=== PATIENT | female | born 1965 | race Caucasian/White ===

== ENCOUNTER 2023-12-21 12:16 | Inpatient (IN) | payer OTHER, SELFPAY ==
[2023-12-21] VITALS (24 sets, daily range): BP systolic 20–131; BP diastolic 48–84; BMI 29.0
--- NOTE | 2023-12-21 07:58 | ED.GENMED ---
History of Present Illness
<Ganga Bailey PA-C - Last Filed: 12/21/23 13:33>
General
Chief Complaint: DVT/Possible Blood Clot
Time Seen by Provider: 12/21/23 07:38
Travel History
Have you had any contact with someone who has COVID-19?: No
Do you have any symptoms of coronavirus? Fever > 100 degrees, chills, cough, shortness of breath, sore throat, loss of taste or smell, muscle aches, or headache?: No
History of Present Illness
History of Present Illness:
58-year-old female with history of hypertension and recently diagnosed atrial fibrillation on Eliquis presents to the emergency department for evaluation of swelling and severe pain to the left calf. She notes that pain began mildly 2 weeks ago
after going for a run, pain did not resolve thus yesterday went for massage and shortly after the massage dramatically worsened. She was unable to sleep due to severe pain. She is unable to put any weight on the leg. Did take her Eliquis last
night but not this morning. No fevers or chills. Denies any numbness or discoloration of the left foot
Review of Systems
<Ganga Bailey PA-C - Last Filed: 12/21/23 13:33>
Review of Systems
Allergies reviewed?: Yes
All Other Systems: ROS reviewed and negative except as documented in HPI and ROS
Phy Exam
<Ganga Bailey PA-C - Last Filed: 12/21/23 13:33>
Physical Exam
Physical Exam:
GEN: Well appearing, NAD, WDWN
HEENT: Oral mucosa moist, no scleral icterus
Cardiac: Regular rate
Lung: No respiratory distress, no tachypnea
MSK: Severe swelling of the left calf, primarily to the posterior compartment there is firmness with no overt rigidity. Severe pain with passive dorsiflexion. Left dorsalis pedis pulse is strong, sensation to the L foot intact
Skin: Good color, no pallor or jaundice, no rashes
Neuro: AO x3, moves all extremities freely
Psych: Calm, cooperative
Course
<Ganga Bailey PA-C - Last Filed: 12/21/23 13:33>
Orders/Labs/Results
Orders:
Orders
12/21/23 08:43
Oxycodone/Acetaminophen [Percocet 5/325] 1 tablet PO NOW STA
12/21/23 08:57
CT Lower Ext W/iv Cont Lt Urgent
Comment:
Reason For Exam: calf swell/pain, eval for bleeding
12/21/23 09:08
CPK [Creatine Phosphokinase] Urgent
Complete Blood Count/With Diff Urgent
Comprehensive Metabolic Panel Urgent
12/21/23 10:15
HYDROmorphone [Dilaudid] 0.5 mg IV NOW STA
12/21/23 10:59
Prothrombin Complex(Pcc),Human [Kcentra] 4,200 unit Empty Viaflex Container 100 ml [Viaflex Empty Container] 0 ml IV NOW
Does patient have a dx of serious acute active bleeding?: Yes
Does patient have prior history of HIT?: No
12/21/23 11:11
Type+Screen Urgent
12/21/23 11:26
Prothrombin Complex(Pcc),Human [Kcentra] 4,207 unit Empty Viaflex Container 100 ml [Viaflex Empty Container] 160 ml IV NOW
12/21/23 11:31
Electrocardiogram (*1) Urgent
Reason for Study: QTc Monitoring
EKG- Treatment ONCE
12/21/23 11:45
Admit/Transfer Patient As Directed
Co-Sign Provider:
Level of Care: Inpatient admission
Assign to:: IMU- Intermediate Care
Physician / Group: Charan Gregg
Diagnosis: Left calf compartment syndrome from bleeding
Reason for Hospitalization: Left calf compartment syndrome
Expected length of stay greater than two midnights?: Yes
ELOS- Estimated Length of Stay in days: 3
I certify the patient meets the requirements for IP care: Yes
Code Status As Directed
Resuscitation Status: Full Code
12/21/23 11:52
Dexamethasone Sod Phosphate [Decadron] 20 mg .ROUTE .STK-MED ONE
Fentanyl Citrate/Pf [Sublimaze] 100 mcg .ROUTE .STK-MED ONE
Lidocaine 2% Mpf [Xylocaine Mpf 2%] 100 mg .ROUTE .STK-MED ONE
Midazolam HCl [Versed] 2 mg .ROUTE .STK-MED ONE
Ondansetron Injectable [Zofran] 4 mg .ROUTE .STK-MED ONE
Propofol [Diprivan] 20 ml .ROUTE .STK-MED
Rocuronium [place] [Rocuronium] 50 mg .ROUTE .STK-MED ONE
12/21/23 12:10
Heparin 5,000 units .ROUTE .STK-MED ONE
Abnormal Lab Results
12/21/23
09:08
MCH 32.1 H pg
(27.0-31.0)
MPV 10.9 H fL
(7.4-10.4)
Chloride 108 H mmol/L
(98-107)
Glucose 103 H mg/dl
(70-99)
12/21/23 09:08
12/21/23 09:08
Vital Signs
Initial and Last Documented VS:
Initial Vital Signs
Temp Pulse Resp BP Pulse Ox
97.9 F 67 16 122/77 98
12/21/23 06:50 12/21/23 06:50 12/21/23 06:50 12/21/23 06:50 12/21/23 06:50
Last Documented Vital Signs
Temp Pulse Resp BP Pulse Ox
97.9 F 67 16 131/77 95
12/21/23 06:50 12/21/23 06:50 12/21/23 06:50 12/21/23 11:13 12/21/23 11:45
Heatherlt;Gabe ThuanKarlee Palmer DO - Last Filed: 12/21/23 10:46>
Orders/Labs/Results
Orders:
Orders
12/21/23 08:43
Oxycodone/Acetaminophen [Percocet 5/325] 1 tablet PO NOW STA
12/21/23 08:57
CT Lower Ext W/iv Cont Lt Urgent
Comment:
Reason For Exam: calf swell/pain, eval for bleeding
12/21/23 09:08
CPK [Creatine Phosphokinase] Urgent
Complete Blood Count/With Diff Urgent
Comprehensive Metabolic Panel Urgent
12/21/23 10:15
HYDROmorphone [Dilaudid] 0.5 mg IV NOW STA
12/21/23 10:59
Prothrombin Complex(Pcc),Human [Kcentra] 4,200 unit Empty Viaflex Container 100 ml [Viaflex Empty Container] 0 ml IV NOW
Does patient have a dx of serious acute active bleeding?: Yes
Does patient have prior history of HIT?: No
12/21/23 11:11
Type+Screen Urgent
12/21/23 11:26
Prothrombin Complex(Pcc),Human [Kcentra] 4,207 unit Empty Viaflex Container 100 ml [Viaflex Empty Container] 160 ml IV NOW
12/21/23 11:31
Electrocardiogram (*1) Urgent
Reason for Study: QTc Monitoring
EKG- Treatment ONCE
12/21/23 11:45
Admit/Transfer Patient As Directed
Co-Sign Provider:
Level of Care: Inpatient admission
Assign to:: IMU- Intermediate Care
Physician / Group: Charan Gregg
Diagnosis: Left calf compartment syndrome from bleeding
Reason for Hospitalization: Left calf compartment syndrome
Expected length of stay greater than two midnights?: Yes
ELOS- Estimated Length of Stay in days: 3
I certify the patient meets the requirements for IP care: Yes
Code Status As Directed
Resuscitation Status: Full Code
12/21/23 11:52
Dexamethasone Sod Phosphate [Decadron] 20 mg .ROUTE .STK-MED ONE
Fentanyl Citrate/Pf [Sublimaze] 100 mcg .ROUTE .STK-MED ONE
Lidocaine 2% Mpf [Xylocaine Mpf 2%] 100 mg .ROUTE .STK-MED ONE
Midazolam HCl [Versed] 2 mg .ROUTE .STK-MED ONE
Ondansetron Injectable [Zofran] 4 mg .ROUTE .STK-MED ONE
Propofol [Diprivan] 20 ml .ROUTE .STK-MED
Rocuronium [place] [Rocuronium] 50 mg .ROUTE .STK-MED ONE
12/21/23 12:10
Heparin 5,000 units .ROUTE .STK-MED ONE
Abnormal Lab Results
12/21/23
09:08
MCH 32.1 H pg
(27.0-31.0)
MPV 10.9 H fL
(7.4-10.4)
Chloride 108 H mmol/L
(98-107)
Glucose 103 H mg/dl
(70-99)
12/21/23 09:08
12/21/23 09:08
Vital Signs
Initial and Last Documented VS:
Initial Vital Signs
Temp Pulse Resp BP Pulse Ox
97.9 F 67 16 122/77 98
12/21/23 06:50 12/21/23 06:50 12/21/23 06:50 12/21/23 06:50 12/21/23 06:50
Last Documented Vital Signs
Temp Pulse Resp BP Pulse Ox
97.9 F 67 16 131/77 95
12/21/23 06:50 12/21/23 06:50 12/21/23 06:50 12/21/23 11:13 12/21/23 11:45
<Ganga Bailey PA-C - Last Filed: 12/21/23 13:33>
MDM/Problems Addressed
MDM/Problems Addressed:
58-year-old female presenting with left calf swelling and severe pain, initial clinical concern for musculoskeletal etiology such as calf strain/tear versus acute compartment syndrome. The patient's calf is quite tense but not excessively firm.
Initial labs were obtained showing a negative CPK and CT with IV contrast shows intramuscular hematoma with no active extravasation. The decision was then made to obtain intracompartmental pressure measurements using the [place] device, given that
the symptoms are isolated to the posterior compartment the superficial posterior compartment was assessed showing a compartment pressure of 46 mmHg. Case was then discussed with vascular surgery who reviewed the clinical data and images and will
take the patient urgently to the operating room for hematoma decompression and potential fasciotomy. Due to the patient's recent use of Eliquis her anticoagulant was reversed with 4 factor PCC. She remained clinically stable with no signs of lower
extremity ischemia in the emergency department
<Ganga Bailey PA-C - Last Filed: 12/21/23 13:33>
*Critical Care Note
Total Time (30-74mins, 75-104mins- exclusive of procedures): 50 minutes
comment:
Critical care time: 50 minutes
Critical care time was exclusive of: Separately billable procedures, treating other patients, and teaching time
Critical care was necessary to treat or prevent imminent or life-threatening deterioration of the following conditions: Acute compartment syndrome
Critical care time spent personally by me on the following activities:
[x] Review of old charts
[x] Obtaining history from patient or surrogate
[x] Ordering and review of the laboratory studies
[x] Ordering and review of radiographic studies
[x] Ordering and performing treatments and interventions
[x] Patient patient's response to treatment
[x] Development of treatment plan with patient or surrogate
<Ganga Bailey PA-C - Last Filed: 12/21/23 13:33>
Update Note
Update Note:
1037: superficial posterior compartment pressure 46mmHg measured by Dr Palmer. [facility] message sent to Orthopedics for evaluation
1050: Received call from Dr Lane, [employer] salesperson. As there is no fracture, this is a vascular surgery case.
1058: D/W Dr Rizvi with vascular surgery, will come to evaluate pt, plan for OR. Will send type and screen, order Kcentra for eliquis reversal as pt's last dose was last night
ED Attending Note
<Ganga Bailey PA-C - Last Filed: 12/21/23 13:33>
-
Portions of this chart may have been created with voice recognition software.� Occasional wrong word or��sound alike� substitutions may have occurred due to the inherent limitations of voice recognition software.
<Gabe Palmer, - Last Filed: 12/21/23 10:46>
ED Attending Note
Patient seen and examined by attending physician: Yes
I performed the substantive portion of visit, reviewed & personally made and approve the management plan that is documented in note by myself or HARRY.: Yes
ED Attending Note:
Agree with Lucas's note.
Pt with left calf pain. Had been present for a couple weeks but much worse over the past 24 hours since a message.
VSS
Cap refill brisk
strong DP/PT pulse
Will obtain CT to eval for hematoma, active extrav, or other cause for pain.
CT reviewed by myself----appears to show hematoma in calf.
Superficial posterior compartment pressure measured (copartment with hematoma).
Skin prepped w chlorhexidine and allowed to dry.
Device zeroed as recommended by tomography technologist.
0.2ml of sterile saline injected after advancing needle about 3cm into compartment. Pressure measured at 43.
Lucas will communicate with ortho on-call
Discharge Plan
Departure
Patient Disposition: Admit
Date of Disposition: 12/21/23
Time of Disposition: 11:09
Presentation/result/management discussed w/ accepting MD/DO: Hospitalist
Discharge Problem:
Compartment syndrome of left lower extremity
Interventions
Interventions:
*Risk Screen - Suicide Last Done: 12/21/23 06:50
*General Assessment Last Done: 12/21/23 06:50
*Neglect/Abuse Screening Last Done: 12/21/23 06:50
*ED COVID-19 Vaccine History Last Done: 12/21/23 09:14
*Nursing Disposition Last Done: 12/21/23 13:03
ED- Cardiac Assessment Last Done: 12/21/23 11:21
ED- Pulmonary Assessment Last Done: 12/21/23 09:34
ED-Peripheral Vascular Assessment Last Done: 12/21/23 09:34
ED-Skin Assessment Last Done: 12/21/23 09:18
Discharge Date and Time
Discharge Date/Time: 12/21/23 13:05
[2023-12-21] MEDS: PERCOCET 5/325 1 TABLET PO (09:01)
[2023-12-21 09:19] LABS: % Basophils 0.7 % (0-2); % Eosinophils 2.9 % (0-6); % Immature Granulocytes 0.3 % (0-0.5); % Monocytes 5.6 % (1.7-9.3); % Neutrophils 67.5 % (42.2-75.2); Absolute Basophils 0.1 10^3/uL (0-0.2); Absolute Eosinophils 0.3 10^3/uL (0-0.7); Absolute Lymphocytes 2.2 10^3/uL (1.2-3.4); Absolute Monocytes 0.5 10^3/uL (0.1-0.6); Absolute Neutrophils 6.3 10^3/uL (1.4-6.5); Hematocrit 40.5 % (37.0-47.0); Hemoglobin 13.5 g/dL (12.0-16.0); Mean Corp Hgb Conc. 33.3 g/dL (33.0-37.0); Mean Corpuscular Hgb 32.1 pg (27.0-31.0); Mean Corpuscular Volume 96.4 fL (81.0-99.0); Mean Platelet Volume 10.9 fL (7.4-10.4); Nucleated Red Blood Cells % 0 %; Platelet Count 211 10^3/uL (130-400); Red Cell Dist. Width 13.3 % (11.5-14.5); White Blood Cell Count 9.4 10^3/uL (4.8-10.8)
[2023-12-21 09:34] LABS: ALT (SGPT) 20 U/L (0-35); AST (SGOT) 23 U/L (14-36); Albumin 4.4 g/dl (3.5-5.0); Alkaline Phosphatase 58 U/L (38-126); Blood Urea Nitrogen 16 mg/dl (7-17); Calcium 9.1 mg/dl (8.4-10.2); Carbon Dioxide 24 mmol/L (22-30); Chloride 108 mmol/L (98-107); Creatine Phosphokinase 47 U/L (30-135); Estimated Creatinine Clearance 117 ml/min; Glucose 103 mg/dl (70-99); Potassium 4.6 mmol/L (3.5-5.1); Sodium 138 mmol/L (135-145); Total Bilirubin 0.5 mg/dl (0.2-1.3); Total Protein 6.5 g/dl (6.3-8.2); eGFR > 60.00
[2023-12-21] MEDS: DILAUDID 0.5 MG IV ×2 (10:23→14:04)
[2023-12-21] MEDS: KCENTRA 160 UNIT IV (11:41)
--- NOTE | 2023-12-21 11:48 | HPS.HSE ---
Family Physician
-
Family Physician: Mars Parks PA-C
Chief Complaint
-
Left calf swelling and pain
History of Present Illness
Patient is a 58-year-old female with past medical history of paroxysmal A-fib on Eliquis, essential hypertension, obesity, hyperlipidemia, impaired fasting glucose, medical marijuana user came to ER with new onset of left calf pain and swelling.
For last 2 weeks patient have vigorous exercise/activity with running and jogging. Patient started noticing some left calf pain. Patient went for massage yesterday and after return noticed new onset swelling in left calf. This rapidly progressed
through night with significant swelling and tension in left leg causing patient to present to ER. In ER patient had a CT of left leg showing a large hematoma. Intra compartment pressure was measured at bedside by ER physician and was found to be
43 mmHg. Patient with good palpable pulse and dorsalis pedis and posterior tibialis. Vascular surgery was consulted and patient is planned to go to the OR for emergent surgery.
During my visit in ER patient denies of any other ongoing issues of dizziness/headache/chest pain/palpitation/shortness of breath/cough/abdominal pain/nausea/vomiting/diarrhea/dysuria/fever.
Medical History
Past Medical History
Past Medical History: Reports Other
Additional Past Medical History:
paroxysmal A-fib on Eliquis, essential hypertension, obesity, hyperlipidemia, impaired fasting glucose, medical marijuana user
Past Surgical History: Reports Other
Social History
Tobacco: Other (Smokes marijuana)
Alcohol: Occasional
Drug: Marijuana
Living: With Family
Family History
Family History: Not pertinent
Allergies / Home Medications
Allergies reflects when Allergies were last updated in [facility].
Home Medications with original date entered in [facility]
Allergy/Medication List:
Allergies
Allergy/AdvReac Type Severity Reaction Status Date / Time
No Known Allergies Allergy Verified 12/21/23 06:49
Med rec pending:
Losartan
Eliquis
Review of Systems
-
A 12 point ROS was completed and negative except as noted: Yes
Physical Exam
Vital Signs
Vital Signs
Temp Pulse Resp BP Pulse Ox
97.9 F 67 16 131/77 97
12/21/23 06:50 12/21/23 06:50 12/21/23 06:50 12/21/23 11:13 12/21/23 11:14
Physical Exam
General: No Apparent Distress and Obese
HEENT: No Oxygen
Respiratory: Clear
Cardiac: S1/S2 and Regular Rhythm; No Murmur or Rub
GI: Soft, Non Tender, Non Distended and Normal Bowel Sounds; No Organomegaly
Musculoskeletal: No Clubbing, No Cyanosis and Edema, Left Lower Extremity (tenderness on exam. good DP/PT pulse)
Skin: No Rash
Neuro: Awake, Alert, Oriented and Nonfocal/grossly intact
Laboratory Results
-
12/21/23 09:08
12/21/23 09:08
Laboratory Results
Total Bilirubin 0.5 mg/dl (0.2-1.3) 12/21/23 09:08
AST 23 U/L (14-36) 12/21/23 09:08
ALT 20 U/L (0-35) 12/21/23 09:08
Alkaline Phosphatase 58 U/L (38-126) 12/21/23 09:08
Data Reviewed
-
Lab Data: Labs Reviewed by me, Discussed with Patient and Discussed with Family
Impression/Plan
-
1. Left calf hematoma associated with eliquis use
Left leg compartment syndrome
-Spontaneous hematoma after left calf massage therapy
-CT left lower extremity official read pending, posterior compartment hematoma
-Bedside intra compartment pressure measurement of 43 mmHg
-Patient on Eliquis for diagnosis of paroxysmal A-fib in October, patient getting dose of Kcentra in ER
-Vascular surgery consulted and patient to going to the OR
-NPO/IVF and pain medication ordered
-Monitor hemoglobin trend, vascular checks ordered
-Admit to IMU
2. Paroxysmal atrial fibrillation
-Family concerned about stroke risk, discussed at length with acute bleed patient needs to be off of blood thinners and will be resumed back on anticoagulation once cleared postoperatively
-EKG showing NSR
-Follows up with Dr. Martinez
3. Essential HTN
-Med rec calcium pending, patient on ANIKA/ARB at home
-Will resume back once dose confirmed
4. Marijuana use
-Patient use medical marijuana for anxiety/stress
DVT PPX - none - SCD contraindicated with calf hematoma
Full code
Total time spent : 76 mins
I personally saw and examined the patient.
I have reviewed all diagnostic interpretations and treatment plans as written.
Time includes patient management by me, time spent at the patients bedside, time to review lab and imaging results, discussing patient care, documentation in the medical record, and time spent with the family or caregiver and discussing care plan
with RN/Consultants.
--- NOTE | 2023-12-21 12:16 | W.SUR.PREOP ---
Pre-Operative Surgical Note
-
I have examined this patient prior to the performance of the scheduled procedure.
The patient's condition is unchanged from the time of the current History and
Physical and the patient is able to undergo the scheduled procedure.
--- NOTE | 2023-12-21 12:19 | CON.VAS ---
Consultation
Consultation Request
Date/Time Consultation Requested: 12/21/2023
Date/Time Consultation Performed: 12/21/2023
Performing Provider: Yelena Rizvi MD
Reason for Consultation: LLE compartment syndrome
Medical History
-
Chief Complaint: L calf pain
History of Present Illness:
Has had sore left calf for the past couple of weeks thought to be secondary to increased working out/activity
Yesterday went for massage, which was very painful
Since then has had progressively enlarging left calf with progressively worsening pain
On AC for a fib
Denies motor/sensory loss
compartment pressure by ED measured at [address] reviewed and interpreted by me with intramuscular hematoma L gastroc, no obvious active extrav
Past Medical History
Past Medical History: Arrhythmias, HTN, Hypercholesterolemia and Other (impaired fasting glucose)
Social History
Tobacco: Smoker (Marijuana only)
Alcohol: Occasional
Family History
Family History: Reviewed & Not Pertinent
Allergies / Home Medications
Allergy/AdvReac Type Severity Reaction Status Date / Time
No Known Allergies Allergy Verified 12/21/23 06:49
Medication Instructions Recorded Confirmed Type
allopurinol 100 mg tablet 100 mg PO DAILY 12/21/23 12/21/23 History
apixaban 5 mg tablet (Eliquis) 5 mg PO BID 12/21/23 12/21/23 History
berberine-herbal comb no.18 capsule 1 cap PO DAILY 12/21/23 12/21/23 History
diltiazem HCl 120 mg capsule,24 120 mg PO DAILY 12/21/23 12/21/23 History
hr,extended release
fluoxetine 20 mg capsule (Prozac) 20 mg PO DAILY 12/21/23 12/21/23 History
losartan 100 mg tablet 100 mg PO DAILY 12/21/23 12/21/23 History
therapeutic multivitamin 1 tab PO DAILY 12/21/23 12/21/23 History
Review of Systems
-
History Source: Patient
All other systems: Negative unless noted
Physical Exam
Vital Signs
Temp Pulse Resp BP Pulse Ox
97.9 F 67 16 131/77 95
12/21/23 06:50 12/21/23 06:50 12/21/23 06:50 12/21/23 11:13 12/21/23 11:45
Lab Results
12/21/23 09:08
12/21/23 09:08
Physical Exam
General: Well Developed and Well Nourished
HEENT: Normocephalic and Anicteric
Respiratory: Clear
Cardiac: S1/S2
GI: Soft and Non Tender
Musculoskeletal: Other (Left posterior compartment tight with severe tenderness to palpation)
Skin: Warm and Dry
Neuro: AO x 3
Pulses: Left Dorsalis Pedis: +2 (Left foot motor/sensory intact and warm)
Assessment / Plan
-
58F with intramuscular hematoma causing tense compartment and severe pain concerning for compartment syndrome.
Will proceed emergently to the operating room for decompression of the compartment via fasciotomy and attempted evacuation of hematoma.
Hold AC
Stat type and screen
serial neurovasc checks LLE
Data Reviewed
-
CT Scan: Image Personally Visualized and interpreted
Labs: Labs Reviewed by me
--- NOTE | 2023-12-21 13:54 | W.IMMPOSTOP ---
Surgical Immed Post Op Note
-
Primary Surgeon: Belkys
Pre-op Diagnosis:LLE posterior compartment hematoma, L posterior compartment syndrome
Post-op Diagnosis: Same
Procedure Performed: 1. Superficial posterior compartment fasciotomy 2. Evacuation hematoma 3. Control of hemorrhage
Anesthesia Type: General
Estimated Blood Loss: 20cc
Complications: None
Operative Findings: Hematoma evacuated. Skin closed primarily over a 19F britton drain.
[2023-12-21] MEDS: NSS 1000 IV (17:55)
[2023-12-21 18:25] LABS: Hematocrit 35.8 % (37.0-47.0); Hemoglobin 12.6 g/dL (12.0-16.0); Mean Corp Hgb Conc. 35.2 g/dL (33.0-37.0); Mean Corpuscular Hgb 32.4 pg (27.0-31.0); Mean Platelet Volume 10.7 fL (7.4-10.4); Platelet Count 195 10^3/uL (130-400); Red Blood Cell Count 3.89 10^6/uL (4.20-5.40); Red Cell Dist. Width 13.3 % (11.5-14.5); White Blood Cell Count 11.6 10^3/uL (4.8-10.8)
[2023-12-21] MEDS: COLACE PO (19:40)
[2023-12-21] MEDS: ROXICODONE 5 MG PO (19:54)
--- NOTE | 2023-12-21 20:30 | PTCARENOTE ---
Assume care from AM RN. AAOx3 at times anxious. C/o lt leg pain. See MAR. Daughter at bedside and is anxious. Gen weakness Lt leg. NSR in the monitor. +1 Lt leg edema. Pt has weak pulse. Vascular assessment Q2. Lung sounds are diminished at the
bases, shallow breathing. SaO2 92-94% 2L NC. Occasional dry nonproductive cough. Abd round +BS. Pt appears comfortable in bed and call astorga within reach.
[2023-12-21] MEDS: MELATONIN 3 MG PO (22:49)
[2023-12-22] VITALS (18 sets, daily range): BP systolic 92–141; BP diastolic 54–87; BMI 28.3
[2023-12-22] MEDS: ROXICODONE 5 MG PO ×4 (02:21→17:38)
[2023-12-22] MEDS: NSS 1000 IV ×2 (04:56→14:19)
[2023-12-22 05:33] LABS: Hematocrit 32.5 % (37.0-47.0); Hemoglobin 11.3 g/dL (12.0-16.0); Mean Corp Hgb Conc. 34.8 g/dL (33.0-37.0); Mean Corpuscular Hgb 32.4 pg (27.0-31.0); Mean Corpuscular Volume 93.1 fL (81.0-99.0); Mean Platelet Volume 11.3 fL (7.4-10.4); Platelet Count 193 10^3/uL (130-400); Red Blood Cell Count 3.49 10^6/uL (4.20-5.40); Red Cell Dist. Width 13.1 % (11.5-14.5); White Blood Cell Count 10.9 10^3/uL (4.8-10.8)
[2023-12-22 05:38] LABS: Blood Urea Nitrogen 7 mg/dl (7-17); Calcium 8.9 mg/dl (8.4-10.2); Carbon Dioxide 24 mmol/L (22-30); Chloride 105 mmol/L (98-107); Estimated Creatinine Clearance 115 ml/min; Glucose 128 mg/dl (70-99); Potassium 4.2 mmol/L (3.5-5.1); Sodium 137 mmol/L (135-145); eGFR > 60.00
[2023-12-22] MEDS: PROZAC 20 MG PO (07:37)
[2023-12-22] MEDS: ZYLOPRIM 100 MG PO (07:38)
[2023-12-22] MEDS: COZAAR 100 MG PO (07:39)
--- NOTE | 2023-12-22 08:38 | W.PN.VS ---
Today's Communication / Plan
-
POD 1 L posterior compartment fasciotomy, evacuation hematoma
- restart home anticoagulation
- monitor drain output
- mobilize/PT
- dressing down tomorrow
- hopefully drain out and home tomorrow if tolerates anticoagulation restart with no increase in bleeding
Assessment/Plan
-
POD 1 L posterior compartment fasciotomy, evacuation hematoma
- restart home anticoagulation
- monitor drain output
- mobilize/PT
- dressing down tomorrow
- hopefully drain out and home tomorrow if tolerates anticoagulation restart with no increase in bleeding.
Subjective Data
-
Date of Service: December 22, 2023
POD 1 L posterior compartment fasciotomy, evacuation of hematoma
Shawn drain - 30cc post op
Pain significantly improved
no motor/sensory deficits in lower leg or foot
hgb drifted, now 11
Objective Data
-
Vital Signs
Temp Pulse Resp BP Pulse Ox
98.1 F 70 18 117/69 93
12/22/23 07:35 12/22/23 07:39 12/22/23 05:03 12/22/23 07:39 12/22/23 05:03
Intake and Output
12/21/23 12/22/23 12/23/23
06:59 06:59 06:59
Intake Total 1590 / 1590
Output Total 30 / 30
Balance 1560 / 1560
Intake:
Oral fluids 1240 / 1240
IV fluids (Total) 350 / 350
normosol 200 / 200
Output:
Drain Output (Total) 30 / 30
Left Lower Leg Ilya-Med[place] 30 / 30
Other:
Number of approximated MODERATE 2
amounts of urine
Number of approximated LARGE 1
amounts of urine
Lab Results
12/22/23 04:55
12/22/23 04:55
Calcium 8.9 mg/dl (8.4-10.2) 12/22/23 04:55
Total Bilirubin 0.5 mg/dl (0.2-1.3) 12/21/23 09:08
AST 23 U/L (14-36) 12/21/23 09:08
ALT 20 U/L (0-35) 12/21/23 09:08
Alkaline Phosphatase 58 U/L (38-126) 12/21/23 09:08
Total Protein 6.5 g/dl (6.3-8.2) 12/21/23 09:08
Albumin 4.4 g/dl (3.5-5.0) 12/21/23 09:08
Physical Exam
-
2+ DP, PT
foot warm
foot motor/sensory intact
dressing dry
--- NOTE | 2023-12-22 08:56 | W.PN.HOSP.TC ---
Today's Communication/Plan
-
Start Eliquis
PT OT evaluation
Transfer to [facility]
Assessment / Plan
Assessment / Plan
1. Left calf hematoma associated with Eliquis use
� � Left leg compartment syndrome
Acute blood loss anemia
-Spontaneous hematoma after left calf massage therapy
-CT left lower extremity official read pending,� posterior compartment hematoma
-Bedside intra compartment pressure measurement of 43 mmHg
-Patient on Eliquis for diagnosis of paroxysmal A-fib in October, patient getting dose of Kcentra in ER
-Patient was taken emergently to the OR with s/p left calf fasciotomy and hematoma evacuation done on 12/20
-Vascular surgery evaluated today and cleared to be resumed back on Eliquis.
-Minimal hemoglobin drop from blood loss/hematoma. Continue monitoring
2.� Paroxysmal atrial fibrillation
-Patient to be resumed back on Eliquis home dose from today morning
-EKG showing NSR
-Follows up with Dr. Martinez
3. Essential HTN
-Resume home medication of diltiazem/losartan
4. Marijuana use
-Patient use medical marijuana for anxiety/stress
5. Depression/anxiety
-Resume back fluoxetine
DVT PPX - none -Eliquis
Full code
Anticipated Discharge: 24 - 48 hours
Subjective/Interval History
-
Date of Service: December 22, 2023
Complaints overnight
Some pain in left lower extremity
Objective Data
-
Labs:
Laboratory Results
12/22/23 12/22/23
00:00 04:55
WBC Cancelled 10.9 H
Hgb Cancelled 11.3 L
Hct Cancelled 32.5 L
Plt Count Cancelled 193
Sodium 137
Potassium 4.2
Chloride 105
Carbon Dioxide 24
BUN 7
Creatinine 0.4 L
Glucose 128 H
Calcium 8.9
Vital Signs:
Vital Signs
Temp Pulse Resp BP Pulse Ox
98.1 F 70 18 117/69 93
12/22/23 07:35 12/22/23 07:39 12/22/23 05:03 12/22/23 07:39 12/22/23 05:03
I&O
12/21/23 12/22/23 12/23/23
06:59 06:59 06:59
Intake Total 1590 / 1590
Output Total
Balance 1560 / 1560
Review of Systems
-
Respiratory: Reports No Symptoms
Cardiac: Reports No Symptoms
Abdomen/GI: Reports No Symptoms
Physical Exam
-
General: No Apparent Distress and Comfortable
HEENT: Negative Oxygen
Respiratory: Clear to Auscultation
Cardiac: Regular Rhythm and S1/S2; Negative Murmur or Rub
GI: Soft, Nontender and Nondistended
Musculoskeletal: Edema, Left Lower Extrem (QUINN drain in place)
Neuro: Awake, Alert, Oriented, No Motor Deficits and Nonfocal/Grossly Intact
Psych: Calm
[2023-12-22] MEDS: ELIQUIS 5 MG PO ×2 (10:17→20:58)
[2023-12-22] MEDS: COLACE 100 MG PO ×2 (10:17→20:58)
--- NOTE | 2023-12-22 13:35 | CM ---
CM reviewed medical records. CM met with patient in room. Patient confirmed demographics. Patient lives independently with spouse. No history of VN, SNF. Patient has a walker and a cane. Patient is active with her PCP. Patient uses [facility] in
[facility].
Patient is agreeable to VN. Referral sent via Care port to [facility].
--- NOTE | 2023-12-22 14:33 | PTCARENOTE ---
Pt. arrived via wheelchair from [facility] to [facility]. Pt. received pain medication prior to transfer, pt. states her pain level has improved. Pt. VSS, family at bedside. Pt. resting in bed at this time, call astorga within reach.
[2023-12-22] MEDS: MELATONIN 3 MG PO (20:58)
[2023-12-23 01:22] LABS: Hematocrit 29.6 % (37.0-47.0); Hemoglobin 10.2 g/dL (12.0-16.0); Mean Corp Hgb Conc. 34.5 g/dL (33.0-37.0); Mean Corpuscular Hgb 32.5 pg (27.0-31.0); Mean Corpuscular Volume 94.3 fL (81.0-99.0); Mean Platelet Volume 10.7 fL (7.4-10.4); Platelet Count 141 10^3/uL (130-400); Red Blood Cell Count 3.14 10^6/uL (4.20-5.40); Red Cell Dist. Width 13.3 % (11.5-14.5); White Blood Cell Count 7.9 10^3/uL (4.8-10.8)
[2023-12-23 01:40] LABS: Blood Urea Nitrogen 10 mg/dl (7-17); Calcium 8.7 mg/dl (8.4-10.2); Carbon Dioxide 25 mmol/L (22-30); Chloride 110 mmol/L (98-107); Estimated Creatinine Clearance 115 ml/min; Glucose 104 mg/dl (70-99); Potassium 3.9 mmol/L (3.5-5.1); Sodium 137 mmol/L (135-145); eGFR > 60.00
[2023-12-23] MEDS: ROXICODONE 5 MG PO ×2 (04:34→13:03)
[2023-12-23 07:00] VITALS: BP 151/82
[2023-12-23] MEDS: ELIQUIS 5 MG PO (08:23)
[2023-12-23] MEDS: PROZAC 20 MG PO (08:23)
[2023-12-23] MEDS: COLACE 100 MG PO (08:23)
[2023-12-23] MEDS: COZAAR 100 MG PO (08:23)
[2023-12-23] MEDS: ZYLOPRIM 100 MG PO (08:23)
[2023-12-23 09:13] VITALS: BP 143/81; PULSE 63; O2SAT 99
[2023-12-23 12:27] LABS: Hepatitis B Surface Antigen Negative (Negative)
--- NOTE | 2023-12-23 12:36 | W.PN.VS ---
Today's Communication / Plan
-
Seen and assessed with Dr. Bradshaw
Assessment/Plan
-
POD 2 L posterior compartment fasciotomy, evacuation hematoma
-QUINN drain removed
-Continue Eliquis
-mobilize/PT
-Okay for discharge
Subjective Data
-
Date of Service: December 23, 2023
Patient seen at bedside this a.m. with Dr. Bradshaw. No events overnight. Dressing dry. Pulse checks remain unchanged
Objective Data
-
Vital Signs
Temp Pulse Resp BP Pulse Ox
98.8 F 57 18 151/82 98
12/23/23 07:00 12/23/23 07:00 12/23/23 07:00 12/23/23 07:00 12/23/23 08:00
Intake and Output
12/22/23 12/23/23 12/24/23
06:59 06:59 06:59
Intake Total 1590 / 1590 1020 / 1020
Output Total /
Balance 1560 / 1560 975 / 975
Intake:
Oral fluids 1240 / 1240 720 / 720
IV fluids (Total) 350 / 350 300 / 300
normosol 200 / 200
Output:
Drain Output (Total) 45 / 45
Left Lower Leg Ilya-Medina 45 / 45
Other:
Number of approximated MODERATE 2 4
amounts of urine
Number of approximated LARGE 1
amounts of urine
Lab Results
12/23/23 01:17
12/23/23 01:17
Calcium 8.7 mg/dl (8.4-10.2) 12/23/23 01:17
Total Bilirubin 0.5 mg/dl (0.2-1.3) 12/21/23 09:08
AST 23 U/L (14-36) 12/21/23 09:08
ALT 20 U/L (0-35) 12/21/23 09:08
Alkaline Phosphatase 58 U/L (38-126) 12/21/23 09:08
Total Protein 6.5 g/dl (6.3-8.2) 12/21/23 09:08
Albumin 4.4 g/dl (3.5-5.0) 12/21/23 09:08
Physical Exam
-
2+ DP, PT
foot warm
foot motor/sensory intact
dressing removed, matt/suture site well-approximated, clean dry and intact
QUINN removed
Geovanni wrapped
[2023-12-23 12:38] LABS: HIV Combo Negative (Negative)
[2023-12-23 12:45] LABS: Hepatitis C Antibody Negative (Negative)
--- NOTE | 2023-12-23 15:22 | W.PN.HOSP.TC ---
Today's Communication/Plan
-
ok for d/c
Assessment / Plan
Assessment / Plan
pt is a 58 year old female
Left calf hematoma associated with Eliquis use with Left leg compartment syndrome and Acute blood loss anemia--Spontaneous hematoma after left calf massage therapy--s/p OR with vascular--eliquis restarted--OK for d/c
Paroxysmal atrial fibrillation--Patient to be resumed back on Eliquis home dose from today morning--EKG showing NSR--Follows up with Dr. Martinez
Essential HTN--Resume home medication of diltiazem/losartan
Marijuana use--Patient use medical marijuana for anxiety/stress
Depression/anxiety--Resume back fluoxetine
DVT PPX - none -Eliquis
Full code
Anticipated Discharge: Today
Subjective/Interval History
-
Date of Service: December 23, 2023
pt anxious to go home
Objective Data
-
Vital Signs:
max temp for 24 hours
12/23/23
07:00
Temp 98.8 F
Vital Signs
Temp Pulse Resp BP Pulse Ox
98.8 F 57 18 151/82 98
12/23/23 07:00 12/23/23 07:00 12/23/23 07:00 12/23/23 07:00 12/23/23 08:00
I&O
12/22/23 12/23/23 12/24/23
06:59 06:59 06:59
Intake Total 1590 / 1590 1020 / 1020
Output Total 30 30 45 / 45
Balance 1560 / 1560 975 / 975
Review of Systems
-
All other systems: Reviewed and negative
Physical Exam
-
General: Well Developed, Well Nourished and No Apparent Distress
HEENT: Normocephalic and Atraumatic
Respiratory: Clear to Auscultation; Negative Wheezes or Rhonchi
Cardiac: Regular Rhythm and S1/S2; Negative Murmur
GI: Soft, Nontender, Nondistended and Normal Bowel Sounds
Musculoskeletal: No Clubbing, No Cyanosis, No Edema and Other (left leg wrapped)
Neuro: Awake and Alert
--- NOTE | 2023-12-23 15:38 | CM ---
Patient seen at bedside, with and physician. Patient was referred to [facility], no answer at this time. Patient indicated that patient daughter is a nurse and would be assisting them with the wound care. Patient was
given isa phone number to call with questions. Patient for discharge home today with family supports. CM will continue to follow for discharge planning needs.
Plan;home with isa vs daughter supports.
--- NOTE | 2023-12-24 08:04 | W.DCSUMMARY ---
Discharge Summary
Discharge Data
Date of Admission: 12/21/23
Date of Discharge: 12/23/23
-
Pending Results: No
Hospital Course
Primary care physician : Mars Parks
Principal Discharge diagnosis : Left calf hematoma associated with Eliquis and left leg compartment syndrome with acute blood loss anemia
Chronic Discharge diagnosis : Paroxysmal atrial fibrillation, essential hypertension, marijuana use, depression/anxiety
Hospital Course : Patient was a 58-year-old female with paroxysmal atrial fibrillation on Eliquis who came in complaining of left calf pain and swelling. For the last 2 weeks prior to admission, she had vigorous exercise and activity with running
and jogging. She then noticed some left calf pain. Patient did go for massage on the day prior to admission and afterwards noticed swelling in the left calf. She stated this rapidly progressed through the night and had tension in the left leg
which caused her to come to the emergency department. CAT scan showed large left leg hematoma. Intra compartment pressures were measured and found to be 43 mmHg. Vascular surgery was consulted and the patient did go to the operating room for
emergent surgery. Patient was admitted.
Problem #1: Left leg hematoma associated with Eliquis resulting in left leg compartment syndrome with acute blood loss anemia. Patient was taken to the operating room after seen in consultation by vascular surgery. Hematoma was evacuated. QUINN
drain was removed on December 23, 2023. Eliquis was obviously held. This was restarted in the day prior to discharge. Patient has been cleared for home by vascular surgery. Visiting nurses have been consulted. Patient is stable for discharge at
this time. She is able to bear weight on the left leg.
Problem #2: All other medical issues. These include Paroxysmal atrial fibrillation, essential hypertension, marijuana use, depression/anxiety. These medical issues were stable during her hospitalization. Medications were continued as able.
Patient is stable for discharge home at this time. If there are any questions regarding this dictation or her hospital stay, please not hesitate to call. Our office number is [phone].
Important imaging findings :
CT SCAN LEG IMPRESSION: Left lower leg CT scan centered about the calf.
No fracture or dislocation. Moderate degenerative joint disease at the knee. Moderate joint effusion. Moderate Hanks's cyst. Incompletely imaged.
Large hematoma within the medial gastrocnemius muscle, causing compression of the muscle and posterior compartment. Incomplete visualization distally of the soleus.
Procedure findings :
Primary Surgeon:� Belkys
Pre-op Diagnosis:LLE posterior compartment hematoma, L posterior compartment syndrome�
Post-op Diagnosis: � Same
Procedure Performed:� 1. Superficial posterior compartment fasciotomy 2. Evacuation hematoma 3. Control of hemorrhage
Anesthesia Type:� General
Estimated Blood Loss:� 20cc
Complications:� None
Operative Findings:� Hematoma evacuated. Skin closed primarily over a 19F britton drain.
Discharge Plan
-
Patient Disposition: Home with Home Care
Discharge Diagnosis/Procedures: Left calf hematoma associate with Eliquis use along with left leg compartment syndrome and acute blood loss anemia, posterior compartment fasciotomy left lower extremity, Evacuation hematoma left posterior
compartment, Control of hemorrhage, paroxysmal atrial fibrillation, essential hypertension, marijuana use, depression/anxiety
Condition: Good
Diet: As tolerated and Regular
Activity: As tolerated
Driving Restrictions: Not until seen by your Dr
Bathing Restrictions: OK to Shower
Other Services: VN
Stand Alone Forms: DC Instr - Vascular OR
Referrals:
Breana Anderson PA-C [Specified Professional Personl] - 01/14/24 10:15 am (Vascular follow up)
Mars Parks PA-C [Family Provider] - in less than 1 week
Prescriptions:
New
acetaminophen 325 mg Tablet
650 mg PO Q4HPRN PRN (Reason: mild pain/ALBERTS/temp> 100.4F) Qty: 0 0RF
oxycodone 5 mg Tablet
5 mg PO Q4HPRN PRN (Reason: moderate pain) Qty: 10 0RF
docusate sodium 100 mg Capsule
100 mg PO BID Qty: 0 0RF
Continued
therapeutic multivitamin Tablet
1 tab PO DAILY
allopurinol 100 mg Tablet
100 mg PO DAILY
diltiazem HCl 120 mg Capsule,Extended Release 24 Hr
120 mg PO DAILY
losartan 100 mg Tablet
100 mg PO DAILY
fluoxetine [Prozac] 20 mg Capsule
20 mg PO DAILY
Eliquis 5 mg Tablet
5 mg PO BID
Held
berberine-herbal comb no.18 Capsule
1 cap PO DAILY
Hold Instructions: Do not take while on narcotic medications for pain
Discharge Orders:
Discharge Patient (As Directed); Ordered 12/23/23
Ordered By: Casandra Enrique
Discharge Date and Time
Discharge Date/Time: 12/23/23 16:52
--- NOTE | 2023-12-24 11:57 | CM ---
CM spoke with patient via phone, patient stated she is doing good but requested CM contact [facility] to confirm that they had accepted patient, she had called and not gotten a response. CM finally got through to [facility] and they are now
saying that they do not accept patient insurance. CM called back to Patient and sent referral to [facility]. Patient has appointment with physician today at 1:30 and will follow up with referrals.
Phone numbers provided to patient via phone.
Plan; home care;PCP appointment
== END 2023-12-23 16:52 | disposition home health service (06) | DRG 908 ==
LOC: 4 EAST ACU 12:16
PROVIDERS: Nurse Practitioner Family; Physician Assistant; ADMITTING PHYSICIAN Hospitalist; ATTENDING PHYSICIAN Internal Medicine; CONSULT PHYSICIAN Student in an Organized Health Care Education/Training Program; EMERGENCY PHYSICIAN Emergency Medicine; FAMILY PHYSICIAN Physician Assistant Medical
PROC: 0KCT0ZZ Extirpation of Matter from Left Lower Leg Muscle, Open Approach (ICD-10-PCS; 2023-12-21)
PROC: 0KNT0ZZ Release Left Lower Leg Muscle, Open Approach (ICD-10-PCS; 2023-12-21)
PROC: 0Y9J30Z Drainage of Left Lower Leg with Drainage Device, Percutaneous Approach (ICD-10-PCS; 2023-12-21)
PROC: 0Y3J0ZZ Control Bleeding in Left Lower Leg, Open Approach (ICD-10-PCS; 2023-12-21)
PROC: 0YPBX0Z Removal of Drainage Device from Left Lower Extremity, External Approach (ICD-10-PCS; 2023-12-23)
DX: T79.A22A Traumatic compartment syndrome of left lower extremity, initial encounter (principal); D62 Acute posthemorrhagic anemia; D68.32 Hemorrhagic disorder due to extrinsic circulating anticoagulants; I10 Essential (primary) hypertension; I48.0 Paroxysmal atrial fibrillation; X58.XXXA Exposure to other specified factors, initial encounter; Y93.02 Activity, running; Y92.9 Unspecified place or not applicable; E66.9 Obesity, unspecified; E78.00 Pure hypercholesterolemia, unspecified; R73.01 Impaired fasting glucose; F32.A Depression, unspecified; M17.12 Unilateral primary osteoarthritis, left knee; M25.462 Effusion, left knee; M71.22 Synovial cyst of popliteal space [Baker], left knee; F12.90 Cannabis use, unspecified, uncomplicated; M79.81 Nontraumatic hematoma of soft tissue; S80.12XA Contusion of left lower leg, initial encounter; F41.9 Anxiety disorder, unspecified; Z79.01 Long term (current) use of anticoagulants; Z68.28 Body mass index [BMI] 28.0-28.9, adult
CPT/HCPCS: 10140; 27601; 73701; 80048; 80053; 82550; 85025; 85027; 86803; 86850; 86900; 86901; 87340; 87389; 93005; 96374; 96375; 96376; 97116; 97162; 97167; 99291; J7168; Q9967

== ENCOUNTER 2024-03-16 09:29 | Emergency (ER) | payer OTHER, SELFPAY ==
[2024-03-16 09:37] VITALS: BP 149/84
[2024-03-16 10:26] VITALS: BMI 29.4
--- NOTE | 2024-03-16 10:28 | ED.GENMED ---
History of Present Illness
General
Chief Complaint: Vascular Symptoms
Source: patient
Time Seen by Provider: 03/16/24 09:51
Travel History
Have you had any contact with someone who has COVID-19?: No
Do you have any symptoms of coronavirus? Fever > 100 degrees, chills, cough, shortness of breath, sore throat, loss of taste or smell, muscle aches, or headache?: No
History of Present Illness
History of Present Illness:
58-year-old female complaining of left proximal posterior calf pain. Started yesterday. Patient has been to the beach over the weekend. No fever chills chest pain or shortness of breath. Similar episode November of this year when a resulting
hematoma causing compartment syndrome. She had a hematoma evacuation and fasciotomy at that time. Swelling is much less than it was at that time however.
Past History
Past History
ED Past Medical History: Arrthythmia and HTN
ED Past Surgical History: Tonsilectomy and Other (Fasciotomy/hematoma evacuation)
Review of Systems
Review of Systems
All Other Systems: Not applicable
Constitutional: Denies fever or chills
Respiratory: Reports no symptoms
Cardiac: Reports no symptoms
Phy Exam
Physical Exam
Physical Exam:
GENERAL: Alert and oriented in no apparent distress
CARDIAC: Regular rate and rhythm
LUNGS: No respiratory distress
NEUROLOGICAL: Alert and oriented , grossly non-focal
SKIN: Warm and dry, no rash or lesion, patient is well pain. However there is a minimal erythematous hue to the left lower leg.
MUSCULOSKELETAL: Questionable minimal swelling to the left lower leg. No pitting edema. No fluctuance. Mild tenderness to the lower left proximal medial calf. Mostly dorsally. No cord. No tightness to the leg. Good distal pulses and color.
Capillary refill intact. No pain with passive flexion or extension of the foot. No paresthesias or weakness of the foot.
PSYCH: Normal and appropriate interaction.
Course
Orders/Labs/Results
Orders:
Orders
03/16/24 10:09
CT Angio Lower Ext W/Wo Iv Contrast [CT Lower Ext Angio W/wo Iv Con] Stat
Comment: h/o campartment synd, on eliquis
Reason For Exam: left leg r/o compartment syndrome, hematoma
03/16/24 10:28
BMP [Basic Metabolic Panel] Urgent
Complete Blood Count/With Diff Urgent
Abnormal Lab Results
03/16/24
10:28
MCH 31.5 H pg
(27.0-31.0)
MPV 10.9 H fL
(7.4-10.4)
Creatinine 0.5 L mg/dL
(0.6-1.0)
Glucose 104 H mg/dl
(70-99)
03/16/24 10:28
03/16/24 10:28
Vital Signs
Initial and Last Documented VS:
Initial Vital Signs
Temp Pulse Resp BP Pulse Ox
98.0 F 56 18 149/84 98
03/16/24 09:37 03/16/24 09:37 03/16/24 09:37 03/16/24 09:37 03/16/24 09:37
Last Documented Vital Signs
Temp Pulse Resp BP Pulse Ox
98.0 F 56 18 149/84 98
03/16/24 09:37 03/16/24 09:37 03/16/24 09:37 03/16/24 09:37 03/16/24 09:37
MDM/Problems Addressed
Differential Diagnosis Includes:
At this time clinically the leg does not show remarkable changes. However with patient's symptoms vascular surgery was asked to get involved as they had also sent her in. Low suspicion for acute compartment syndrome. Highly doubt reforming
significant hematoma. No obvious cellulitis. Labs and CT angio pending.
*Radiology
Radiology exam reviewed: radiology read reviewed (No acute findings. Small fluid collection in the posterior popliteal fossa. No active bleeding. No vascular issue.)
*Pulse Oximetry
Patient hypoxic: no
*Critical Care Note
Total Time (30-74mins, 75-104mins- exclusive of procedures): Not Applicable
Data Reviewed
Review of Other/Old Records Reveals: Labs, Records, Operative Reports and Discharge Summary
ED Attending Note
-
Portions of this chart may have been created with voice recognition software.� Occasional wrong word or��sound alike� substitutions may have occurred due to the inherent limitations of voice recognition software.
Discharge Plan
Departure
Patient Disposition: Home (Routine Discharge)
Date of Disposition: 03/16/24
Time of Disposition: 14:09
Patient with high blood pressure during this ER visit?: Yes
Discharge Problem:
Left leg pain, Recent hematoma/fasciotomy
Instructions: BLOOD PRESSURE
Prescriptions:
No Action
therapeutic multivitamin Tablet
1 tab PO DAILY
allopurinol 100 mg Tablet
100 mg PO DAILY
diltiazem HCl 120 mg Capsule,Extended Release 24 Hr
120 mg PO DAILY
losartan 100 mg Tablet
100 mg PO DAILY
fluoxetine [Prozac] 20 mg Capsule
20 mg PO DAILY
berberine-herbal comb no.18 Capsule
1 cap PO DAILY
Hold Instructions: Do not take while on narcotic medications for pain
Eliquis 5 mg Tablet
5 mg PO BID
acetaminophen 325 mg Tablet
650 mg PO Q4HPRN PRN (Reason: mild pain/ALBERTS/temp> 100.4F) Qty: 0 0RF
oxycodone 5 mg Tablet
5 mg PO Q4HPRN PRN (Reason: moderate pain) Qty: 10 0RF
docusate sodium 100 mg Capsule
100 mg PO BID Qty: 0 0RF
Referrals:
Mars Parks PA-C [Family Provider] - Follow up in 2-3 days
Activity Restrictions/Additional Instructions:
Elevate. Rest. Return immediately with increased swelling increased pain fever increased redness
Or if you feel like is not improving in the next 2 to 3 days
Interventions
Interventions:
*General Assessment Last Done: 03/16/24 14:17
*ED COVID-19 Vaccine History Last Done: 03/16/24 09:39
*Nursing Disposition Last Done: 03/16/24 14:17
ED-Peripheral Vascular Assessment Last Done: 03/16/24 10:27
ED-Skin Assessment Last Done: 03/16/24 10:27
Discharge Date and Time
Print Language: SAMI
[2024-03-16 10:39] LABS: % Basophils 0.9 % (0-2); % Eosinophils 2.6 % (0-6); % Immature Granulocytes 0.2 % (0-0.5); % Lymphocytes 34.2 % (20.5-51.1); % Monocytes 5.9 % (1.7-9.3); % Neutrophils 56.2 % (42.2-75.2); Absolute Basophils 0.1 10^3/uL (0-0.2); Absolute Eosinophils 0.1 10^3/uL (0-0.7); Absolute Lymphocytes 1.8 10^3/uL (1.2-3.4); Absolute Monocytes 0.3 10^3/uL (0.1-0.6); Hematocrit 40.6 % (37.0-47.0); Mean Corp Hgb Conc. 34.5 g/dL (33.0-37.0); Mean Corpuscular Hgb 31.5 pg (27.0-31.0); Mean Corpuscular Volume 91.4 fL (81.0-99.0); Mean Platelet Volume 10.9 fL (7.4-10.4); Nucleated Red Blood Cells % 0 %; Platelet Count 194 10^3/uL (130-400); Red Blood Cell Count 4.44 10^6/uL (4.20-5.40); Red Cell Dist. Width 13.7 % (11.5-14.5); White Blood Cell Count 5.3 10^3/uL (4.8-10.8)
[2024-03-16 11:10] LABS: Blood Urea Nitrogen 14 mg/dl (7-17); Calcium 9.7 mg/dl (8.4-10.2); Carbon Dioxide 24 mmol/L (22-30); Chloride 106 mmol/L (98-107); Estimated Creatinine Clearance 117 ml/min; Glucose 104 mg/dl (70-99); Potassium 4.4 mmol/L (3.5-5.1); Sodium 139 mmol/L (135-145); eGFR > 60.00
--- NOTE | 2024-03-16 11:17 | CON.VAS ---
Consultation
Consultation Request
Performing Provider: Leeann
Reason for Consultation: Left calf pain s/p compartment syndrome
Medical History
-
Chief Complaint: Left calf pain/pressure
History of Present Illness:
58-year-old female with recent history of posterior compartment fasciotomy of the left lower extremity and evacuation of hematoma on 12/21/[address] Rizvi. Patient is on Eliquis for A-fib. Patient did well postoperatively and was put back on her
Eliquis. Patient presents to the emergency room this a.m. for pain/pressure in the posterior calf of her left leg that began this morning suddenly. Patient admits it feels how her prior compartment syndrome started which led her to seek evaluation
in the emergency room this morning.
Vascular consultation to evaluate left lower extremity. Patient seen at bedside this a.m. in the ER. All left leg compartments are soft, left calf soft, only mildly tender to palpation. +2 DP, PT, and popliteal, femoral pulses. Foot is warm and
pink. Mild erythema to the left gaming (patient admits she has been at the beach for the past week).
Past Medical History
Past Medical History: Arrhythmias (A-fib on Eliquis) and HTN
Past Surgical History: Other (Hematoma washout, left lower extremity fasciotomy, compartment syndrome-12/21/2023)
Social History
Tobacco: Other (Marijuana)
Alcohol: Occasional
Drug: Marijuana
Living: With Family
Family History
Family History: Reviewed & Not Pertinent
Allergies / Home Medications
Allergy/AdvReac Type Severity Reaction Status Date / Time
No Known Allergies Allergy Verified 03/16/24 09:42
�Medication �Instructions �Recorded �Confirmed �Type
allopurinol 100 mg tablet 100 mg PO DAILY Gout 12/21/23 12/21/23 History
apixaban 5 mg tablet (Eliquis) 5 mg PO BID Blood Clot 12/21/23 12/21/23 History
Prevention/Tx
berberine-herbal comb no.18 capsule 1 cap PO DAILY Supplement 12/21/23 12/21/23 History
diltiazem HCl 120 mg capsule,24 120 mg PO DAILY Heart 12/21/23 12/21/23 History
hr,extended release Disease/Condition
fluoxetine 20 mg capsule (Prozac) 20 mg PO DAILY Mental 12/21/23 12/21/23 History
Health/Anxiety
losartan 100 mg tablet 100 mg PO DAILY Blood Pressure 12/21/23 12/21/23 History
therapeutic multivitamin 1 tab PO DAILY Supplement 12/21/23 12/21/23 History
acetaminophen 325 mg tablet 650 mg (2 x 325 mg) PO Q4HPRN PRN 12/23/23 Rx
mild pain/ALBERTS/temp> 100.4F #0 tabs
docusate sodium 100 mg capsule 100 mg PO BID #0 caps 12/23/23 Rx
oxycodone 5 mg tablet 5 mg PO Q4HPRN PRN moderate pain 12/23/23 Rx
#10 tabs
Review of Systems
-
History Source: Patient
All other systems: Negative unless noted
Constitutional: Reports No Symptoms
Cardiac: Reports No Symptoms
Vascular: Reports Other (Left calf pain/pressure)
Physical Exam
Vital Signs
Temp Pulse Resp BP Pulse Ox
98.0 F 56 18 149/84 98
03/16/24 09:37 03/16/24 09:37 03/16/24 09:37 03/16/24 09:37 03/16/24 09:37
Lab Results
03/16/24 10:28
03/16/24 10:28
Physical Exam
General: No Apparent Distress
HEENT: Normocephalic and Atraumatic
Respiratory: Non Labored Respirations
Cardiac: Negative JVD
GI: Soft, Non Tender and Non Distended
Musculoskeletal: No Clubbing, No Cyanosis and Edema (Mild edema to the left ankle)
Skin: Warm
Neuro: Awake, Alert and Oriented
Psych: Calm
Pulses: Left Popliteal: +2, Left Dorsalis Pedis: +2 and Left Posterior Tibial: +2
Assessment / Plan
-
58-year-old female status post left posterior compartment fasciotomy/hematoma washout 12/21/[address] Rizvi
Now here today for new pain/pressure in the left posterior calf-patient states it feels similar to the prior event which led to her fasciotomy
Plan:
-CT angio left lower extremity to rule out hematoma/extrav
-Will follow-up with patient after scan is complete
== END 2024-03-16 14:17 | disposition home or self-care (01) ==
LOC: EMR 09:29
PROVIDERS: EMERGENCY PHYSICIAN Emergency Medicine; FAMILY PHYSICIAN Physician Assistant Medical; OTHER PHYSICIAN Nurse Practitioner Acute Care
DX: M79.662 Pain in left lower leg (principal); I10 Essential (primary) hypertension; I48.91 Unspecified atrial fibrillation; Z79.01 Long term (current) use of anticoagulants
CPT/HCPCS: 99284; 73706; 80048; 85025; Q9967

== ENCOUNTER → 2024-03-31 07:41 | Outpatient (REF) | payer OTHER, SELFPAY | LOC: WDC 07:41 | PROVIDERS: ATTENDING PHYSICIAN Physician Assistant Medical | DX: Z12.31 Encounter for screening mammogram for malignant neoplasm of breast (principal) | CPT/HCPCS: 77063; 77067 ==

== ENCOUNTER → 2024-09-01 12:00 | Outpatient (REF) | payer OTHER, SELFPAY | LOC: DHSLP 12:00 | PROVIDERS: ATTENDING PHYSICIAN Internal Medicine; FAMILY PHYSICIAN Physician Assistant Medical | DX: G47.19 Other hypersomnia (principal); R06.83 Snoring | CPT/HCPCS: 95800 ==

== ENCOUNTER → 2025-04-26 15:06 | Outpatient (REF) | payer OTHER, SELFPAY | LOC: WDC 15:06 | PROVIDERS: ATTENDING PHYSICIAN Physician Assistant Medical | DX: Z12.31 Encounter for screening mammogram for malignant neoplasm of breast (principal) | CPT/HCPCS: 77063; 77067 ==

== ENCOUNTER 2025-05-14 13:22 | Inpatient (IN) | payer OTHER, SELFPAY ==
[2025-05-14] VITALS (19 sets, daily range): BP systolic 123–166; BP diastolic 89–155; BMI 27.6; BMI 26.6
--- NOTE | 2025-05-14 11:04 | ED.GENMED ---
History of Present Illness
General
Chief Complaint: Heart Rate Problem
Source: patient and records
Exam Limitations: none
Time Seen by Provider: 05/14/25 10:40
Nursing documentation reviewed up to this point in time: agreed with
History of Present Illness
History of Present Illness:
59-year-old female PAF, on Eliquis, as needed diltiazem as a pill in pocket, gout, drinker, non-smoker prior urgent surgery for compartment syndrome related to bleeding, recent dental work extraction with dry socket bleeding yesterday had an
operative procedure, has been off her Eliquis since yesterday, went into A-fib this morning she thinks, took some diltiazem, no chest pain or shortness of breath, complain mainly of dental pain
Past History
Past History
ED Past Medical History: Arrthythmia, HTN and Other (Oral surgery)
ED Past Surgical History: Tonsilectomy and Other (Fasciotomy/hematoma evacuation)
Social History
Tobacco: Non-smoker
Alcohol: Daily
Drug: None
Personal:
Living: with family
Employment: Employed
Review of Systems
Review of Systems
All Other Systems: Not applicable
Constitutional: Denies fever or fatigue
EENT: Reports other (Toothache)
Respiratory: Denies cough
Cardiac: Reports palpitations; Denies chest pain
ABD/GI: Reports no symptoms
: Reports no symptoms
Musculoskeletal: Reports no symptoms
Skin: Reports no symptoms
Neurological: Reports no symptoms
Hematologic/Lymphatic: Reports no symptoms
Phy Exam
Physical Exam
Physical Exam:
Physical Exam
General: no apparent distress, not acutely ill
Neck: No active bleeding
Heart: Tachycardic
Lungs: no acute respiratory distress. clear bilaterally
Abdomen: Not tender
Neuro: alert and oriented. no focal neurological deficits
Skin: no rash
Psychiatric: well kept. interactive and cooperative
Extremities: no edema.
Course
Orders/Labs/Results
Orders:
Orders
05/14/25 10:51
Electrocardiogram (*1) Urgent
Reason for Study: Chest Pain
Cardiac Monitoring- Treatment ONCE
EKG- Treatment ONCE
IV Insert/Care/Rem.- Treatment PRN
O2 Therapy [RESP] Urgent
Titrate/Wean O2 to maintain O2 sat greater than (%): 90
Special Instructions: Maintain sats >/=90%
Pulse Ox/spot Check [RESP] Urgent
Quantity: 1
Special Instructions: ON ROOM AIR
05/14/25 10:52
Complete Blood Count/With Diff Urgent
Comprehensive Metabolic Panel Urgent
Magnesium Urgent
Comment: ADD ON
Troponin I Urgent
05/14/25 11:00
Diltiazem 125 mg/125 ml Nss [Cardizem] 125 mg in 125 ml IV PER PROTOCOL
Initial dose in mg/hr, then titrate:: 5
Titrate to keep:: Heart rate 80-100 bpm
Titrate by mg/hr:: 5 mg/hr
Frequency of titrations (minutes):: 15
Maximum dose in mg/hr:: 15
Diltiazem HCl [Cardizem] 10 mg IV NOW STA
05/14/25 11:01
Add On- LAB Urgent
Tests Added?: magnesium
HYDROmorphone [Dilaudid] 0.5 mg IV NOW STA
Abnormal Lab Results
05/14/25
10:52
WBC 13.2 H 10^3/uL
(4.8-10.8)
MCH 32.1 H pg
(27.0-31.0)
Absolute Neuts (auto) 9.4 H 10^3/uL
(1.4-6.5)
Absolute Monos (auto) 0.9 H 10^3/uL
(0.1-0.6)
Lymphocytes % 19.5 L %
(20.5-51.1)
BUN 5 L mg/dl
(7-17)
Creatinine 0.5 L mg/dL
(0.6-1.0)
Glucose 131 H mg/dl
(70-99)
Troponin I 0.756 H* ng/ml
05/14/25 10:52
05/14/25 10:52
Vital Signs
Initial and Last Documented VS:
Initial Vital Signs
Pulse Resp BP Pulse Ox
146 18 135/107 95
05/14/25 10:42 05/14/25 10:42 05/14/25 10:42 05/14/25 10:42
Last Documented Vital Signs
Pulse Resp BP Pulse Ox
132 24 135/105 95
05/14/25 12:00 05/14/25 12:00 05/14/25 12:00 05/14/25 12:00
MDM/Problems Addressed
Differential Diagnosis Includes:
A-fib PAF atrial tach SVT
MDM/Problems Addressed:
A-fib with disruption of her anticoagulation
Chronic conditions affecting care: Arrhythmia
Acute Exacerbation and/or Progression of Chronic Illness: Arrhythmia
*Pulse Oximetry
SaO2: 95
Oxygen Mode of Delivery: Room air
Patient hypoxic: no
*EKG
Interpreted by ED Provider?: Yes
Interpretation: abnormal
Comparison EKG: no comparison EKG present
Heart Rate: 140
Rate: tachycardiac
Rhythm: a-fib
Ischemia: non-specific ST changes
*Cellar Packer Interpretation
Rate: tachycardiac
Interpretation: abnormal
Heart Rate: 140
*Critical Care Note
Total Time (30-74mins, 75-104mins- exclusive of procedures): 12
Data Reviewed
Review of Other/Old Records Reveals: Operative Reports
Source: patient
Prescriptions/Medications Considered But Not Given:
Cardioversion
Further Testing Considered But Not Given:
Echo
Update Note
Update Note:
Will try to rate controlled with Cardizem, check electrolytes, hold on cardioversion due to disruption of her anticoagulation recently due to oral surgery bleeding
12:10 PM labs noted, maintains in A-fib on Cardizem cardiology consult hospitalist admit
ED Attending Note
-
Portions of this chart may have been created with voice recognition software.� Occasional wrong word or��sound alike� substitutions may have occurred due to the inherent limitations of voice recognition software.
Discharge Plan
Departure
Patient Disposition: Admit
Date of Disposition: 05/14/25
Time of Disposition: 12:09
Admit to: IVU
Presentation/result/management discussed w/ accepting MD/DO: Hospitalist
Patient with high blood pressure during this ER visit?: Yes
Condition: Fair
Discharge Problem:
Paroxysmal atrial fibrillation, A-fib rapid ventricular rate
Prescriptions:
No Action
allopurinol 100 mg Tablet
100 mg PO DAILY
losartan 100 mg Tablet
100 mg PO DAILY
fluoxetine [Prozac] 20 mg Capsule
20 mg PO DAILY
Eliquis 5 mg Tablet
5 mg PO BID
amoxicillin 500 mg Capsule
500 mg PO TID
Rx Instructions:
FOR 10 DAYS STARTING 05/10/25
hydrocodone-acetaminophen 5-325 mg Tablet
2 tab PO BIDPRN PRN (Reason: SEVERE PAIN)
Patient Comments:
FILLED 6 TABLETS ON 05/13/25
red yeast rice 600 mg Capsule
600 mg PO DAILY
cholecalciferol (vitamin D3) [Vitamin D3] 25 mcg (1,000 unit) Tablet
25 mcg PO DAILY
coQ10 (ubiquinol) 100 mg Capsule
100 mg PO DAILY
magnesium oxide 400 mg magnesium Tablet
400 mg PO DAILY
acetaminophen 325 mg tablet
650 mg PO Q6HPRN PRN (Reason: mild pain/ALBERTS/temp> 100.4F)
diltiazem HCl 120 mg Tablet
120 mg PO DAILY
Referrals:
Mars Parks PA-C [Family Provider, Family Practice]
Interventions
Interventions:
*Risk Screen - Suicide Last Done: 05/14/25 10:42
*General Assessment Last Done: 05/14/25 10:42
*Neglect/Abuse Screening Last Done: 05/14/25 10:42
*ED- Fall Risk Assessment Last Done: 05/14/25 10:42
*ED COVID-19 Vaccine History Last Done: 05/14/25 10:42
ED- Cardiac Assessment Last Done: 05/14/25 10:42
ED- Pulmonary Assessment Last Done: 05/14/25 10:42
Discharge Date and Time
Print Language: PARAGUAYAN
[2025-05-14 11:09] LABS: Hematocrit 46.0 % (37.0-47.0); Hemoglobin 16.0 g/dL (12.0-16.0); Mean Corp Hgb Conc. 34.8 g/dL (33.0-37.0); Mean Corpuscular Volume 92.2 fL (81.0-99.0); Nucleated Red Blood Cells % 0 %; Platelet Count 297 10^3/uL (130-400); Red Cell Dist. Width 13.2 % (11.5-14.5)
[2025-05-14 11:21] LABS: ALT (SGPT) 18 U/L (0-35); AST (SGOT) 25 U/L (14-36); Albumin 4.7 g/dl (3.5-5.0); Alkaline Phosphatase 76 U/L (38-126); Blood Urea Nitrogen 5 mg/dl (7-17); Calcium 9.4 mg/dl (8.4-10.2); Carbon Dioxide 22 mmol/L (22-30); Chloride 106 mmol/L (98-107); Estimated Creatinine Clearance 101 ml/min; Glucose 131 mg/dl (70-99); Magnesium 1.8 mg/dl (1.6-2.3); Potassium 3.9 mmol/L (3.5-5.1); Sodium 138 mmol/L (135-145); Total Protein 7.2 g/dl (6.3-8.2); eGFR > 60.00
[2025-05-14] MEDS: DILAUDID 0.5 MG IV ×2 (11:29→15:56)
--- NOTE | 2025-05-14 11:30 | PHANOTE ---
med rec note- called [facility] to inquire about diltiazem, ecw has capsules but patient currently filling tablets.
[2025-05-14] MEDS: CARDIZEM 10 MG IV ×2 (11:31→15:20)
[2025-05-14 11:36] LABS: Troponin I 0.756 ng/ml
[2025-05-14] MEDS: CARDIZEM 125 IV ×2 (12:21→20:27)
--- NOTE | 2025-05-14 14:13 | HPS.HSE ---
Addendum entered and electronically signed by Pan Forte MD 05/14/25 19:15:
Attending Addendum-
I performed a history and physical exam of the patient and discussed his management with the resident. I reviewed the resident's note and agree with the documented findings and plan of care CC/HPI- Came to ED due to palpitations and 'not feeling
well' Attempted pil in pock cardizem without resolution. Of note recently had dental extraction complicated by dry socket. Advised to hold eliquis. PTIETN As found to be in [place] a fib with RVR and started on Cardizem gtt. Currently patient
complains of feeling awful and in extreme pain from her recent dental procedure. Has been spittin gup blood s/p procedure. Denies syncope CP palps NV currently. Full 12 point ROS reviewed and negative except as documented Exam- vitals reviewed in
EMR GEN-mild distress due to pain HEENT right sided facila swelling with TTP, heart irreg irreg tachy Lungs CTA B/L Abd soft ND ND LE no edema
Plan:
# Rapid A fib with RVR
- admit to IVU
- cont Cardizem gtt with hold parameters, bolus x 1 due to uncontrolled HR
- consult cards for eval
- hold eliquis until 05/17- d/w cards no need for heparin gtt in the interim
# NIMI
- secondary to rapid a fib
- trend trop
- check echo
# Leukocytosis
- likely stress rxn
- repeat CBC In am
# Recent Dental extraction with dry socket
- cont amoxicillin x 5 more days
- pain control
# Gout- cont allopurinol
# HTN- cont losartan
# Depression- cont fluoxetine
DVTp-SCDs
CODE- Full
ACP
Patient consented to discuss, was alone, time spent explanation of advance directives, changes in health status, patient�s health care wishes if the patient becomes unable to make health decisions, goals of care, code status, and prognosis- 16
minutes
Time spent coordinating care, review of plan of care with resident, personally reviewed previous records in EMR, med rec, labs, radiology, d/w nursing, family total time documented is exclusive of any additional time listed that was spent in advance
care planning discussion -�75 minutes
Original Note:
Family Physician
-
Family Physician: Mars Parks PA-C
Chief Complaint
-
palpitations
History of Present Illness
59 yo F PMH of paroxysmal atrial fibrillation on eliquis, HTN, gout p/w palpitations. She recently had a dental extraction 1 week ago, that was complicated by dry socket, infection, and bleeding requiring another operation yesterday (05/13). She was
told to hold her eliquis until Saturday, 05/17 given the recent bleeding.
She denies chest pain, dyspnea, lightheadedness, dizziness.
Regarding her afib history, she was initially started on metoprolol, but she discontinued due to gout. Then, was on diltiazem, but began taking it only PRN whenever she experiences palpitation.
In the ED, VS n/f HR 146, BP 135/107, 95% on RA
She received a diltiazem bolus 10mg and then was started on a diltiazem drip that was titrated up to 10mL/hr at the time of our encounter. She also received 0.5 mg dilaudid for pain related to the dental surgeries.
Labs n/f WBC 13.2, troponin of 0.756. Other labs were unremarkable.
EKG in the ED showed atrial fibrillation with RVR and ST depressions (on my read) in V3-V4 leads.
She was then admitted for further management.
PMH: paroxysmal atrial fibrillation, gout, HTN. She denies any hx of CVA/TIA
PSH:dental surgeries in April 2025, fasciotomy of leg hematoma in november 2023
Social: reports occasional EtOH use to me, denies cigarettes, endorses occasional cannabis use, lives in [place] with her
Medical History
Past Medical History
Past Medical History: Reports Other
Additional Past Medical History:
paroxysmal atrial fibrillation, gout, HTN.
Past Surgical History: Reports Other
Additional Past Surgical History:
dental surgeries in April 2025, fasciotomy of leg hematoma in november 2023
Social History
Tobacco: Non-smoker
Alcohol: Occasional
Drug: Marijuana
Personal:
Living: With Family
Family History
Family History: Not pertinent
Allergies / Home Medications
Allergies reflects when Allergies were last updated in [facility].
Home Medications with original date entered in [facility]
Allergy/Medication List:
Allergies
Allergy/AdvReac Type Severity Reaction Status Date / Time
No Known Allergies Allergy Verified 03/16/24 09:42
Home Medications
allopurinol 100 mg tablet 100 mg PO DAILY Gout 12/21/23
apixaban 5 mg tablet (Eliquis) 5 mg PO BID Blood Clot Prevention/Tx 12/21/23
fluoxetine 20 mg capsule (Prozac) 20 mg PO DAILY Mental Health/Anxiety 12/21/23
losartan 100 mg tablet 100 mg PO DAILY Blood Pressure 12/21/23
acetaminophen 325 mg tablet 650 mg PO Q6HPRN PRN mild pain/ALBERTS/temp> 100.4F 05/14/25
amoxicillin 500 mg capsule 500 mg PO TID Infection 05/14/25
cholecalciferol (vitamin D3) 25 mcg (1,000 unit) tablet (Vitamin D3) 25 mcg PO DAILY Supplement 05/14/25
coQ10 (ubiquinol) 100 mg capsule 100 mg PO DAILY Supplement 05/14/25
diltiazem HCl 120 mg tablet 120 mg PO DAILY Blood Pressure 05/14/25
hydrocodone 5 mg-acetaminophen 325 mg tablet 2 tab PO BIDPRN PRN SEVERE PAIN 05/14/25
magnesium oxide 400 mg PO DAILY Supplement 05/14/25
red yeast rice 600 mg capsule 600 mg PO DAILY Supplement 05/14/25
Review of Systems
-
Constitutional: Reports No Symptoms
EENT: Reports Mouth Pain
Respiratory: Reports No Symptoms
Cardiac: Reports Palpitations
Abdomen/GI: Reports No Symptoms
: Reports No Symptoms
Musculoskeletal: Reports No Symptoms
Skin: Reports No Symptoms
Neurological: Reports No Symptoms
Physical Exam
Vital Signs
Vital Signs
Pulse Resp BP Pulse Ox
124 16 140/108 94
05/14/25 12:27 05/14/25 12:27 05/14/25 12:27 05/14/25 12:27
Physical Exam
General: Pain
HEENT: NormoCephalic
Respiratory: Clear
Cardiac: Irregular Rhythm
GI: Soft and Non Tender
Musculoskeletal: No Edema
Skin: Warm
Neuro: AO x 3, No Motor Deficits, Cranial Nerves Intact and No Sensory Deficits
Laboratory Results
-
05/14/25 10:52
05/14/25 10:52
Laboratory Results
Total Bilirubin 0.8 mg/dl (0.2-1.3) 05/14/25 10:52
AST 25 U/L (14-36) 05/14/25 10:52
ALT 18 U/L (0-35) 05/14/25 10:52
Alkaline Phosphatase 76 U/L (38-126) 05/14/25 10:52
Troponin I 0.756 ng/ml H* 05/14/25 10:52
EKG:
Blood Pressure : */* mmHG
Vent. Rate : 155 BPM Atrial Rate : * BPM
P-R Int : * ms QRS Dur : 74 ms
QT Int : 324 ms P-R-T Axes : * 0 25 degrees
QTcB Int : 520 ms
Critical Test Result: High HR
ATRIAL FIBRILLATION WITH RAPID VENTRICULAR RESPONSE
MARKED ST ABNORMALITY, POSSIBLE INFERIOR SUBENDOCARDIAL INJURY
ABNORMAL ECG
WHEN COMPARED WITH ECG OF 21-Dec-2023 11:38,
ATRIAL FIBRILLATION HAS REPLACED SINUS RHYTHM
VENT. RATE HAS INCREASED by [address] NOW DEPRESSED IN INFERIOR LEADS
ST NOW DEPRESSED IN ANTEROLATERAL LEADS
T WAVE AMPLITUDE HAS INCREASED IN ANTERIOR LEADS
Impression/Plan
-
Assessment & Plan
This is a 59 yo F PMH of paroxysmal atrial fibrillation who is p/w palpitations and now found to be in atrial fibrillation with RVR.
# Atrial fibrillation with RVR
- likely trigger is pain, stress, infection from dental extractions surgeries
- ongoing cannabis use may also be contributing in minor parts
- she is hemodynamically stable, medical management is appropriate
- Continue diltiazem drip at 10mL/hr, and reassess VS at regular intervals because it was recently uptitrated
- Cardiology consulted, f/u recommendations
# Non-ischemic myocardial injury
# Type 2 OK
- troponin elevated
- EKG showed ST depressions in some leads
- most likely attributed to demand during atrial fibrillation
- trend troponin
# Dental extraction surgery
- continue amoxicillin 500mg tid for 5 more days
- pain control with 0.5mg dilaudid q4hprn, 5mg oxycodoen q4hprn
- Blood cultures, lactate
# Leukocytosis
- likely reactive in the setting of recent surgeries, stress, infection
- continue amoxicillin
- trend CBC
# Chronic issues per below
# HTN - continue home losartan
# Gout - continue home allopurinol
# Anxiety - continue home fluoxetine
DVT ppx: SCDs
Full code
PCP: Mars Parks
--- NOTE | 2025-05-14 14:13 | CON.CAR ---
Addendum entered and electronically signed by Gabe Guthrie MD 05/14/25 15:31:
Patient seen and examined in collaboration with [facility] CONSULTANT; agree with below.
- 59-year-old female with paroxysmal atrial fibrillation (on Eliquis); known to an outside EP Automotive Quality Manager. Patient presents today with mouth pain after developing significant bleeding and pain after having tooth extraction. Cardiology consulted
for paroxysmal atrial fibrillation with RVR.
- The patient was instructed by her primary Automotive Quality Manager to not resume Eliquis until Saturday, given bleeding.
- Continue Cardizem drip; will bolus an additional 10 mg IV now.
- Echocardiogram on Saturday, if patient is still hospitalized; otherwise, can obtain as an outpatient with her PCP.
- groundwater monitoring technician; will follow.
Original Note:
Consultation
Consultation Request
Date/Time Consultation Requested: 05/14/25 1p
Date/Time Consultation Performed: 05/14/25 1:45p
Requesting Provider: Dr. Gutierrez
Performing Provider: ANDRE Leblanc for Dr. Guthrie
Reason for Consultation: rapid Afib
Medical History
-
Chief Complaint: mouth pain, palpitations
History of Present Illness:
Mrs. Colmenares is a 59 yo female with paroxysmal Afib on Eliquis, HTN, HLD and obesity, who presents to the ER with c/o mouth pain and palpitations. She had emergency dental surgery yesterday and then had significant bleeding at 3am and went back to
the surgeon for packing/treatment. Oral surgeon spoke with her EP interlacer, Dr. Perez, who recommends holding Eliquis until Saturday05/17/25. She felt palpitations this morning and is in rapid Afib. Her primary interlacer is Dr. Estrada at
[facility] and her EP interlacer is Dr. Perez. She states taking Diltiazem ER 120mg 'pill in the pocket' and ablation was discussed at last office visit [address] Perez.
Past Medical History
Past Medical History: Other (as above)
Social History
Tobacco: Non-Smoker
Alcohol: Daily (2 glasses of wine)
Personal:
Living: With Family
Family History
Family History: Reviewed & Not Pertinent
Allergies / Home Medications
Allergy/AdvReac Type Severity Reaction Status Date / Time
No Known Allergies Allergy Verified 03/16/24 09:42
�Medication �Instructions �Recorded �Confirmed �Type
allopurinol 100 mg tablet 100 mg PO DAILY Gout 12/21/23 05/14/25 History
apixaban 5 mg tablet (Eliquis) 5 mg PO BID Blood Clot 12/21/23 05/14/25 History
Prevention/Tx
fluoxetine 20 mg capsule (Prozac) 20 mg PO DAILY Mental 12/21/23 05/14/25 History
Health/Anxiety
losartan 100 mg tablet 100 mg PO DAILY Blood Pressure 12/21/23 05/14/25 History
acetaminophen 325 mg tablet 650 mg PO Q6HPRN PRN mild 05/14/25 05/14/25 History
pain/ALBERTS/temp> 100.4F
amoxicillin 500 mg capsule 500 mg PO TID Infection 05/14/25 05/14/25 History
cholecalciferol (vitamin D3) 25 25 mcg PO DAILY Supplement 05/14/25 05/14/25 History
mcg (1,000 unit) tablet (Vitamin
D3)
coQ10 (ubiquinol) 100 mg capsule 100 mg PO DAILY Supplement 05/14/25 05/14/25 History
diltiazem HCl 120 mg tablet 120 mg PO DAILY Blood Pressure 05/14/25 05/14/25 History
hydrocodone 5 mg-acetaminophen 325 2 tab PO BIDPRN PRN SEVERE PAIN 05/14/25 05/14/25 History
mg tablet
magnesium oxide 400 mg PO DAILY Supplement 05/14/25 05/14/25 History
red yeast rice 600 mg capsule 600 mg PO DAILY Supplement 05/14/25 05/14/25 History
Review of Systems
-
History Source: Patient
All other systems: Negative unless noted
Physical Exam
Vital Signs
Pulse Resp BP Pulse Ox
124 16 140/108 94
05/14/25 12:27 05/14/25 12:27 05/14/25 12:27 05/14/25 12:27
Lab Results
05/14/25 10:52
05/14/25 10:52
Troponin I 0.756 ng/ml H* 05/14/25 10:52
Physical Exam
General: Well Developed, Well Nourished and Other (uncomfortable due to mouth pain )
HEENT: Normocephalic and Other (swelling to right side of face)
Respiratory: Clear and Crackles (bibasilar )
Cardiac: S1/S2 and Irregular Rhythm (tachycardia)
Breast: Deferred by me
GI: Soft, Non Tender, Non Distended and Normal Bowel Sounds
Rectal: Deferred by Provider
Musculoskeletal: No Clubbing, No Cyanosis and No Edema
Skin: Warm and Dry
Neuro: AO x 3
Psych: Calm
Impression / Plan
-
Afib - rapid ventricular response.
- on IV Diltiazem with rapid rates, will give IV Diltiazem bolus now and increase gtt.
- uses 'pill in the pocket' with Diltiazem ER 120mg prn palpitations per Dr. Perez
- she was instructed by Dr. Perez to hold Eliquis yesterday morning until Saturday05/17/25 due to bleeding.
- monitor on tele, rate control with Diltiazem and follow up with Dr. Perez as scheduled.
Non-ischemic myocardial injury - acute in the setting of rapid ventricular response.
- denies any chest pain, sob/berg.
- initial troponin 0.7, trend to peak.
- check echo when rates improve.
HTN - stable, monitor on Diltiazem.
- continue outpatient Losartan.
Mouth pain - tooth surgically removed/dental emergency yesterday.
- bleeding today, treatment per oral surgeon, holding Eliquis till 05/17/[address] Perez.
- pain meds per hospitalist.
Data Reviewed
-
EKG: Tracing Personally Visualized and interpreted (Afib 155 bpm)
Labs: Labs Reviewed by me
Old Records: Reviewed
[2025-05-14 14:53] LABS: LDH 184 U/L (120-246)
--- NOTE | 2025-05-14 15:08 | CM ---
Patient seen bedside w/ spouse in the ED. Initial assessment completed. Patient presenting w/ heart rate problem.
Patient resides w/ spouse in a 2STH, 1 step to enter from the outside. Patient is independent in all areas, no DME reported. No therapy hx reported.
Address, points of contact and insurance verified
PCP: Mars Parks
Pharmacy: [place], [place]
Plan: Anticipating home, no needs
[2025-05-14 17:09] LABS: Troponin I 0.426 ng/ml
--- NOTE | 2025-05-14 19:30 | PTCARENOTE ---
Pt received from ED, diltiazem infusing at 15mg. Pt vomited X1 then felt better. She denied any discomfort. Telemetry shows atrial fib at a rate of 100 at rest up to 150 briefly with activity. Plan to monitor closely.
[2025-05-14] MEDS: AMOXIL 500 MG PO (20:27)
[2025-05-14] MEDS: BENADRYL 6.25 MG IV (20:28)
[2025-05-14] MEDS: AMOXIL PO (22:22)
[2025-05-14] MEDS: MELATONIN 5 MG PO (22:26)
--- NOTE | 2025-05-14 23:25 | PTCARENOTE ---
Received pt at change of shift resting in bed. Afib on tele, HR 110's-120's. pt denies any CP or SOB. Cardizem gtt infusing per protocol. BP stable. pt reports nausea. Venkat De Los Santos, SENIOR QUALITY CONTROL TECHNICIAN made aware, order for IV Benadryl added. SENIOR QUALITY CONTROL TECHNICIAN also ordered
Melatonin per pt request. SCD's applied to pt and educated on importance of use. pt verbalizes understanding. Encouraged pt to call RN with any questions/concerns. Call astorga within reach.
[2025-05-15] VITALS: BP 112/85
[2025-05-15] MEDS: TYLENOL 650 MG PO ×2 (01:36→10:11)
[2025-05-15 01:59] LABS: Hematocrit 42.6 % (37.0-47.0); Hemoglobin 15.1 g/dL (12.0-16.0); Mean Corp Hgb Conc. 35.4 g/dL (33.0-37.0); Mean Corpuscular Volume 91.4 fL (81.0-99.0); Platelet Count 300 10^3/uL (130-400); Red Cell Dist. Width 13.1 % (11.5-14.5)
[2025-05-15 02:00] VITALS: BP 145/93
[2025-05-15 02:13] LABS: ALT (SGPT) 15 U/L (0-35); AST (SGOT) 20 U/L (14-36); Albumin 4.6 g/dl (3.5-5.0); Alkaline Phosphatase 71 U/L (38-126); Blood Urea Nitrogen 6 mg/dl (7-17); Calcium 9.7 mg/dl (8.4-10.2); Carbon Dioxide 21 mmol/L (22-30); Chloride 106 mmol/L (98-107); Estimated Creatinine Clearance 101 ml/min; Glucose 124 mg/dl (70-99); Potassium 3.9 mmol/L (3.5-5.1); Sodium 137 mmol/L (135-145); Total Protein 7.0 g/dl (6.3-8.2); eGFR > 60.00
[2025-05-15] MEDS: AMOXIL 500 MG PO ×2 (03:02→08:25)
[2025-05-15 03:03] VITALS: BMI 26.5
[2025-05-15 03:06] VITALS: BP 130/92
[2025-05-15] MEDS: CARDIZEM 125 IV (04:31)
[2025-05-15 06:34] VITALS: BP 120/86
[2025-05-15 07:15] VITALS: BP 122/86
[2025-05-15] MEDS: MAGNESIUM OXIDE 500 MG PO (08:25)
[2025-05-15] MEDS: COZAAR 100 MG PO (08:25)
[2025-05-15] MEDS: VITAMIN D3 (cholecalciferol) 25 MCG PO (08:25)
[2025-05-15] MEDS: PROZAC 20 MG PO (08:25)
[2025-05-15] MEDS: ZYLOPRIM 100 MG PO (08:25)
--- NOTE | 2025-05-15 10:46 | PTCARENOTE ---
Rec'd Pt A,A+Ox3, states she is 'feeling better'. She remains in SR on cardizem drip at 5mg/hr. Hospitalist resident, Niharika Hair, aware. Pt did c/o some discomfort in R upper jaw at tooth extraction site. Medicated with Tylenol 650 mg, as ordered,
awaiting relief.
[2025-05-15] MEDS: CARDIZEM CD 180 MG PO (11:08)
--- NOTE | 2025-05-15 11:25 | W.PN.CD ---
Today's Communication / Plan
-
- Patient converted back to sinus rhythm on Cardizem drip around 6:00 this a.m.
- Hold Eliquis until Saturday05/17/25 due to dental bleeding.
- Recommend discharging home on Cardizem CD 180 mg daily dosing; outpatient follow-up with primary EP [facility].
Impression / Plan
-
59 yo female with paroxysmal Afib on Eliquis, HTN, HLD and obesity, who presents to the ER with c/o mouth pain and palpitations. She had emergency dental surgery yesterday and then had significant bleeding at 3am and went back to the surgeon for
packing/treatment. Oral surgeon spoke with her EP emergency manager, Dr. Perez, who recommends holding Eliquis until Saturday05/17/25. She felt palpitations this morning and is in rapid Afib. Her primary emergency manager is Dr. Estrada at [facility]
and her EP emergency manager is Dr. Perez. She states taking Diltiazem ER 120mg 'pill in the pocket' and ablation was discussed at last office visit [address] Perez.
Afib - rapid ventricular response.
- Patient converted back to sinus rhythm on Cardizem drip around 6:00 this a.m.
- Typically uses 'pill in the pocket' with Diltiazem ER 120mg prn palpitations per Dr. Perez.
- Hold Eliquis until Saturday05/17/25 due to dental bleeding.
- Recommend discharging home on Cardizem CD 180 mg daily dosing; outpatient follow-up with primary EP [facility].
Non-ischemic myocardial injury - acute in the setting of rapid ventricular response (tachyarrhythmia).
- Troponin peaked at 0.756.
- Can obtain echocardiogram as outpatient with primary [facility] if none recently.
HTN -stable/fairly controlled
- Continue current dose of losartan
- Recommend Cardizem CD 180 mg daily as above.
Mouth pain - tooth surgically removed/dental emergency 07/13/2025.
- Holding Eliquis till 05/17/[address] Perez.
- Pain meds as per Hospitalist.
Physical Exam
Vital Signs/Labs
Vital Signs
Temp Pulse Resp BP Pulse Ox
98.6 F 81 16 122/86 97
05/15/25 08:34 05/15/25 09:00 05/15/25 08:34 05/15/25 07:15 05/15/25 08:34
05/14/25 05/15/25 05/16/25
06:59 06:59 06:59
Actual Weight 76.7 kg
05/15/25 01:46
05/15/25 01:46
Magnesium 1.8 mg/dl (1.6-2.3) 05/14/25 10:52
LAB Results
05/14/25 05/14/25
10:52 16:33
Troponin I 0.756 H* 0.426 H* D
Physical Exam
Constitutional: No acute distress and Comfortable
EENT: Anicteric
Cardiovascular: Rhythm & rate is regular, Pedal edema is absent, Systolic murmur absent and S1S2 is normal
Respiratory: Respiratory effort normal and Rhonchi Present
GI: Soft
Neuro/Psych: AO x 3
Other: Skin (Warm, dry, intact)
Data Reviewed
-
Date of Service: May 15, 2025
EKG: Tracing Personally Visualized and interpreted (Telemetry: A-fib --> SR)
Medical Tests (PFT, Pathology etc): Discussed with Physician (Primary Hospitalist team), Discussed with Nurse, Discussed with Patient and Discussed with Family (Daughter at bedside)
Labs: Labs Reviewed by me
--- NOTE | 2025-05-15 12:01 | W.PN.HOSP.TC ---
Addendum entered and electronically signed by Casandra Enrique MD 05/15/25 13:19:
I saw and evaluated the patient independently. I reviewed the resident�s note and agree with findings and plan as documented by Dr. Hair.
GENERAL: well developed, well nourished, female in no apparent distress
HEENT: NC/AT--no O2 requirements
HEART: regular rate and rhythm, +S1, +S2
LUNGS : clear to auscultation bilaterally
ABDOM: soft, nontender, nondistended, + bowel sounds
EXT: no cyanosis, clubbing, or edema
Paroxysmal Atrial fibrillation with rapid ventricular response--likely triggered by dental issue--s/p cardizem drip with conversion to sinus rhythm--daughter at bedside questioning med choice--explained likely needs increased dose rather than med
change--will eval oral cardizem 180mg response--if stable--can d/c and restart Eliquis Saturday--apprec cards
nonischemic myocardial injury--likely due to rapid afib--outpt echo
Leukocytosis--likely reactive--follow
Recent Dental extraction with dry socket-- cont amoxicillin x 5 more days- pain control
Gout- cont allopurinol
Essential HTN- cont losartan
Depression- cont fluoxetine
DVT proph --SCDs
CODE STATUS -- Full
Original Note:
Today's Communication/Plan
-
# Atrial fibrillation with rapid ventricular response
-Spontaneously converted to sinus at 6am this morning
-Consult with bowling ball grader, input noted with thanks
- Commence PO Cardizem @180mg PO daily. D/C IV Cardizem
-Should be monitored on PO Cardizem and allowed to ambulated
-Discharge later today if Cardiac rythm remains sinus
- Hold eliquis until 05/17
# NIMI
- secondary to rapid a fib
- Trop has peaked
- Echo can be done on out patient basis (F/U with EP/Cardio)
# Leukocytosis
-WBC trending now, 12.0 (from 13.2)
# Recent Dental extraction with dry socket
- cont amoxicillin x 5 more days
- pain control
# Gout- cont allopurinol
# HTN- cont losartan
# Depression- cont fluoxetine
DVTp-SCDs
CODE- Full
Assessment / Plan
Assessment / Plan
Anticipated Discharge: Today
Subjective/Interval History
-
Date of Service: May 15, 2025
Patient seen. A 59year old with a past medical history of Paroxysmal Afib and hypertension who is being managed for Afib with RVR, s/p dental surgery and resulting bleeding.
Pain is down today.
Currently no bleeding
No new complains
Objective Data
-
Labs:
Laboratory Results
05/15/25
01:46
WBC 12.0 H
Hgb 15.1
Hct 42.6
Plt Count 300
Sodium 137
Potassium 3.9
Chloride 106
Carbon Dioxide 21 L
BUN 6 L
Creatinine 0.5 L
Glucose 124 H
Calcium 9.7
Total Bilirubin 0.7
AST 20
ALT 15
Alkaline Phosphatase 71
Vital Signs:
Vital Signs
Temp Pulse Resp BP Pulse Ox
98.6 F 81 16 122/86 97
05/15/25 08:34 05/15/25 09:00 05/15/25 08:34 05/15/25 07:15 05/15/25 08:34
I&O
05/14/25 05/15/25 05/16/25
06:59 06:59 06:59
Intake Total 1380 / 1380
Balance 1380 / 1380
Review of Systems
-
History Source: Patient and Family (Daughter)
Constitutional: Reports No Symptoms
EENT: Reports Mouth Pain and Mouth Swelling (Jaw pain)
Respiratory: Reports No Symptoms
Cardiac: Reports No Symptoms
Abdomen/GI: Reports No Symptoms
Genitourinary: Reports No Symptoms
Musculoskeletal: Reports No Symptoms
Skin: Reports No Symptoms
Neuro: Reports No Symptoms
Physical Exam
-
General: Well Developed
HEENT: Other (Mild- moderate swelling on the right angle of the mandible, tender to touch. Good oral hygeine, normal socket, no active bleeding)
Respiratory: Clear to Auscultation
Cardiac: Regular Rhythm and S1/S2
GI: Nontender (Mild tenderness)
Musculoskeletal: No Clubbing and No Edema
Neuro: Awake, Alert and Oriented
Data Reviewed
-
Labs: Labs Reviewed by me, Discussed with Physician and Discussed with Patient
[2025-05-15 12:10] VITALS: BP 146/94
--- NOTE | 2025-05-15 15:01 | W.DCSUMMARY ---
Addendum entered and electronically signed by Casandra Enrique MD 05/15/25 15:31:
Read, reviewed, and agree. See same day progress note for additional details. Time spent coordinating care, DC planning, review of DC plan of care with resident, transition of care, review of records in EMR, med rec, consults, notes, d/w
consultants, nursing, family, and CM = 39 minutes
Patient was discharged on increased dose of Cardizem CD--180 mg versus 120 mg. She should follow-up with her outpatient data entry processor for further adjustments.
Original Note:
Discharge Summary
Discharge Data
Date of Admission: 05/14/25
Date of Discharge: 05/15/25
-
Pending Results: No
Hospital Course
Discharging Physician : Niharika Hair MD, Casandra Enrique MD
Disposition : Home
Primary care physician : Mars Parks
Principal Discharge diagnosis :
Atrial Fibrillation with Rapid Ventricular Response
Non ischemic Cardiac Myopathy
S/P Tooth extraction with dry socket
Chronic Discharge diagnosis :
Essential Hypertension
Gout
Anxiety & depression
Hospital Course :
59-year-old female with a PMH of paroxysmal atrial fibrillation, HTN, gout p/w palpitations, presented to [facility] ED 05/14/2025 with complains of palpitation and feeling unwell.
She denies Syncope, cough and, chest pain.
She also complained of tooth pain and some bleeding
She recently had a dental extraction 1 week ago, that was complicated by dry socket, infection, and bleeding requiring another operation yesterday (05/13). She was told to hold her eliquis until Saturday, 05/17 given the recent bleeding.
On presentation to the ED to be in mild distress due to pain and right sided facial swelling, cardiovascular exam revealed an irregularly irregular heart rate.
Labs done showed troponin of 0.756. which reduced to 0.426 and leucocytosis which was likely reactionary to the surgery and stress
EKG showed atrial fibrillation with rapid ventricular response marked ST abnormality possible subendocardial injury
She was admitted to telemetry and Placed On Cardizem drip and titrated to achieve adequate rate control.
She subsequently converted to sinus rhythm spontaneously and was discharged following clinical improvement.
Discharge Plan
-
Patient Disposition: Home (Routine Discharge)
Discharge Diagnosis/Procedures: Atrial Fibrillation with Rapid Ventricular Response
Non ischemic Cardiac Myopathy
S/P Tooth extraction with dry socket
Condition: Fair
Diet: As tolerated, Regular and 2 Gram Sodium
Activity: As tolerated
Driving Restrictions: As prior to admission
Blood Work: CBC, CMP in 1 week with PCP
Referrals:
barbie [Other, Cardiology]
Dr. Salome Valencia, DO [Other] - in less than 1 week
Niharika Hair MD, Resident [Family Practice Resident Year1, General]
Nikko Perez MD [Non-Admitting Privileges, Internal Medicine] - in less than 1 week
Mars Parks PA-C [Family Provider, [facility]] - in less than 1 week
Additional Discharge Medication Instructions: Follow up on outpatient basis with the data entry processor, and PCP; (WBC and, Blood glucose were elevated )
Hold Eliquis till Saturday17/05/2025
Continue Abx- Amoxicilin 500mg by mouth three times a day till Saturday
Diltazem at 180mg By mouth, once daily
Prescriptions:
New
diltiazem HCl 180 mg Capsule,Extended Release 24hr
180 mg PO DAILY Qty: 30 0RF
Continued
allopurinol 100 mg Tablet
100 mg PO DAILY
losartan 100 mg Tablet
100 mg PO DAILY
fluoxetine [Prozac] 20 mg Capsule
20 mg PO DAILY
amoxicillin 500 mg Capsule
500 mg PO TID
Rx Instructions:
FOR 10 DAYS STARTING 05/10/25
hydrocodone-acetaminophen 5-325 mg Tablet
2 tab PO BIDPRN PRN (Reason: SEVERE PAIN)
Patient Comments:
FILLED 6 TABLETS ON 05/13/25
red yeast rice 600 mg Capsule
600 mg PO DAILY
cholecalciferol (vitamin D3) [Vitamin D3] 25 mcg (1,000 unit) Tablet
25 mcg PO DAILY
coQ10 (ubiquinol) 100 mg Capsule
100 mg PO DAILY
magnesium oxide 400 mg magnesium Tablet
400 mg PO DAILY
acetaminophen 325 mg tablet
650 mg PO Q6HPRN PRN (Reason: mild pain/ALBERTS/temp> 100.4F)
melatonin
10 mg PO HS
Held
Eliquis 5 mg Tablet
5 mg PO BID
Hold Instructions: Resume on 05/17/25. Hold Eliquis till Saturday05/17/2025 as per data entry processor instruction
Discontinued
diltiazem HCl 120 mg Tablet
120 mg PO DAILY
Discharge Orders:
Discharge Patient (As Directed); Ordered 05/15/25
Ordered By: Niharika Hair
Care Plan Goals
Care Plan Goals:
Problem: Readiness for enhanced knowledge related to diagnosis and treatment plan
Goal: Understand your diagnosis and treatment plan needs, including medications if applicable.
Instructions: Know your diagnosis, underlying causes and treatment plan options, including medications if applicable. Consult with your health care team to learn about your diagnosis and treatment plan, including medications if applicable.
Discharge Date and Time
Print Language: PORTUGUESE
== END 2025-05-15 15:33 | disposition home or self-care (01) | DRG 309 ==
LOC: IVU 13:22
PROVIDERS: ADMITTING PHYSICIAN Family Medicine; ATTENDING PHYSICIAN Internal Medicine; EMERGENCY PHYSICIAN Emergency Medicine; FAMILY PHYSICIAN Physician Assistant Medical; OTHER PHYSICIAN Internal Medicine
DX: I48.0 Paroxysmal atrial fibrillation (principal); I5A Non-ischemic myocardial injury (non-traumatic); M10.9 Gout, unspecified; I10 Essential (primary) hypertension; K13.79 Other lesions of oral mucosa; D72.829 Elevated white blood cell count, unspecified; F41.9 Anxiety disorder, unspecified; E78.5 Hyperlipidemia, unspecified; F32.A Depression, unspecified; E66.9 Obesity, unspecified; Z68.26 Body mass index [BMI] 26.0-26.9, adult; Z79.01 Long term (current) use of anticoagulants
CPT/HCPCS: 80053; 83615; 83735; 84484; 85025; 85027; 87040; 93005; 96365; 96366; 96375; 99285

== ENCOUNTER → 2025-07-28 14:27 | Outpatient (REF) | payer OTHER, SELFPAY | LOC: RAD 14:27 | PROVIDERS: ATTENDING PHYSICIAN Dentist Oral and Maxillofacial Surgery; FAMILY PHYSICIAN Physician Assistant Medical | DX: M94.9 Disorder of cartilage, unspecified (principal) | CPT/HCPCS: 70486 ==